=== PATIENT | male | born 1945 | race Caucasian/White ===

== ENCOUNTER 2018-07-15 17:03 | Emergency (ER) | payer MEDICARE ==
[~2018-07-15] VITALS: Ht 180.3 cm; Wt 58.0 kg
[2018-07-15 17:51] LABS: CULTURE INDICATED? YES; MICROSCOPIC INDICATED
[2018-07-15] MEDS ORDERED: FOSFOMYCIN 3 GM PACKET PO ONE (18:30)
[2018-07-15 19:31] VITALS: BP 129/70
== END 2018-07-15 19:41 | disposition home or self-care (01) ==
LOC: ED 19:30
DX: T83.038A Leakage of other urinary catheter, initial encounter (principal); T83.511A Infection and inflammatory reaction due to indwelling urethral catheter, initial encounter; Z87.891 Personal history of nicotine dependence
CPT/HCPCS: 51702; 81001; 87077; 87086; 87186; 99284

== ENCOUNTER 2018-07-17 06:46 | Inpatient (IN) | payer MEDICARE ==
[~2018-07-17] VITALS: Ht 180.3 cm; Wt 60.8 kg
[2018-07-17 07:36] LABS: CULTURE INDICATED? YES; MICROSCOPIC INDICATED
[2018-07-17] MEDS ORDERED: SODIUM CHLORIDE FLUSH 10ML SYR IVF ONE (08:00)
[2018-07-17] MEDS ORDERED: CEFTRIAXONE PMX 1GM/50ML 50 ML IV ONE (08:00)
[2018-07-17] MEDS ORDERED: CEFTRIAXONE PMX 1GM/50ML 50 ML ONE (08:23)
[2018-07-17 08:35] LABS: BASOPHILS # (AUTO) 0.18 x10^3/uL (0-0.1); BASOPHILS % (AUTO) 1 % (0-1); EOSINOPHILS # (AUTO) 0.05 x10^3/uL (0-0.4); EOSINOPHILS % (AUTO) 0 % (1-7); LYMPHOCYTES % (AUTO) 8 % (22-44); MD NO; MEAN CORPUSCULAR HEMOGLOBIN 28.1 pg (27.5-34.5); MEAN CORPUSCULAR HGB CONC 32.7 g/dL (33.2-36.2); MEAN CORPUSCULAR VOLUME 85.7 fL (81-97); MEAN PLATELET VOLUME 10.5 fL (7.4-10.4); MONOCYTES # (AUTO) 0.67 x10^3/uL (0.2-0.8); MONOCYTES % (AUTO) 5 % (2-9); NEUTROPHILS # (AUTO) 12.44 x10^3/uL (1.8-6.8); NEUTROPHILS % (AUTO) 86 % (42-75); PLATELET COUNT 370 x10^3/uL (130-400); RED BLOOD COUNT 4.28 x10^6/uL (4.38-5.82); RED CELL DISTRIBUTION WIDTH 16.3 % (9.4-14.8)
[2018-07-17 08:45] LABS: ANION GAP 8 mmol/L (5-15); CHLORIDE 108 mmol/L (98-107); CREATININE 1.93 mg/dL (0.7-1.3)
[2018-07-17] MEDS ORDERED: SODIUM CHLORIDE 0.9% 1,000ML IVBOLUS ONE (09:00)
[2018-07-17] MEDS ORDERED: ACETAMINOPHEN 325 MG TABLET PO PRN (10:00)
[2018-07-17] MEDS ORDERED: ONDANSETRON ODT 4 MG PO PRN (10:00)
[2018-07-17 11:01] VITALS: BP 150/84
[2018-07-17] MEDS: DOXYCYCLINE 100MG CAP PO SCH ×2 (12:00→20:27)
[2018-07-17] MEDS: SODIUM CHLORIDE 0.9% 1,000 ML IV SCH ×2 (12:00→21:40)
[2018-07-17] MEDS: HEPARIN 5,000 UNITS/ML, 1ML SQ SCH ×2 (12:01→20:27)
[2018-07-17 12:02] VITALS: BP 127/74
[2018-07-17 13:06] VITALS: BP 153/72
[2018-07-17 19:16] VITALS: BP 115/72
[2018-07-18 03:09] VITALS: BP 132/71
[2018-07-18] MEDS: HEPARIN 5,000 UNITS/ML, 1ML SQ SCH ×3 (04:00→20:45)
[2018-07-18 05:54] LABS: BASOPHILS # (AUTO) 0.09 x10^3/uL (0-0.1); BASOPHILS % (AUTO) 1 % (0-1); EOSINOPHILS # (AUTO) 0.14 x10^3/uL (0-0.4); EOSINOPHILS % (AUTO) 2 % (1-7); LYMPHOCYTES # (AUTO) 1.95 x10^3/uL (1-3.4); LYMPHOCYTES % (AUTO) 21 % (22-44); MD NO; MEAN CORPUSCULAR HEMOGLOBIN 28.2 pg (27.5-34.5); MEAN CORPUSCULAR HGB CONC 32.9 g/dL (33.2-36.2); MEAN CORPUSCULAR VOLUME 85.8 fL (81-97); MONOCYTES # (AUTO) 0.75 x10^3/uL (0.2-0.8); MONOCYTES % (AUTO) 8 % (2-9); NEUTROPHILS # (AUTO) 6.17 x10^3/uL (1.8-6.8); NEUTROPHILS % (AUTO) 68 % (42-75); PLATELET COUNT 284 x10^3/uL (130-400); RED BLOOD COUNT 3.37 x10^6/uL (4.38-5.82); RED CELL DISTRIBUTION WIDTH 16.3 % (9.4-14.8)
[2018-07-18 05:57] LABS: ANION GAP 8 mmol/L (5-15); CALCIUM 7.8 mg/dL (8.5-10.1); CHLORIDE 115 mmol/L (98-107)
[2018-07-18 05:58] LABS: CREATININE 2.09 mg/dL (0.7-1.3)
[2018-07-18 07:34] VITALS: BP 133/69
[2018-07-18] MEDS: DOXYCYCLINE 100MG CAP PO SCH (08:50)
[2018-07-18] MEDS: CEFTRIAXONE PMX 1GM/50ML 50 ML IV SCH (08:51)
[2018-07-18 14:30] VITALS: BP 137/75
[2018-07-18] MEDS ORDERED: SODIUM CHLORIDE 0.9%, 500ML IVBOLUS ONE (18:00)
[2018-07-18 19:20] VITALS: BP 143/77
[2018-07-19 00:36] VITALS: BP 132/72
[2018-07-19] MEDS: HEPARIN 5,000 UNITS/ML, 1ML SQ SCH ×3 (04:00→20:20)
[2018-07-19 07:38] VITALS: BP 146/78
[2018-07-19] MEDS: CEFTRIAXONE PMX 1GM/50ML 50 ML IV SCH (07:58)
[2018-07-19] MEDS ORDERED: CEPH500T PO (10:44)
[2018-07-19 16:27] VITALS: BP 155/79
[2018-07-19 19:26] VITALS: BP 130/79
[2018-07-20 00:59] VITALS: BP 140/77
[2018-07-20] MEDS: HEPARIN 5,000 UNITS/ML, 1ML SQ SCH (04:29)
[2018-07-20 05:59] LABS: ANION GAP 8 mmol/L (5-15); CALCIUM 8.2 mg/dL (8.5-10.1); CHLORIDE 113 mmol/L (98-107)
[2018-07-20 06:03] LABS: CREATININE 1.64 mg/dL (0.7-1.3)
[2018-07-20 06:54] VITALS: BP 191/93
[2018-07-20 08:17] VITALS: BP 170/96
[2018-07-20] MEDS: CEFTRIAXONE PMX 1GM/50ML 50 ML IV SCH (08:58)
== END 2018-07-20 10:44 | disposition home or self-care (01) | DRG 698 ==
LOC: ED 08:45 → EDIP 09:22 → 3NE 10:42
PROVIDERS: ADMIT Hospitalist; ATTEND Hospitalist
PROC: 0T9B70Z Drainage of Bladder with Drainage Device, Via Natural or Artificial Opening (ICD-10-PCS; principal; 2018-07-17)
DX: T83.511A Infection and inflammatory reaction due to indwelling urethral catheter, initial encounter (principal); A41.9 Sepsis, unspecified organism; R65.20 Severe sepsis without septic shock; N17.9 Acute kidney failure, unspecified; N30.91 Cystitis, unspecified with hematuria; I10 Essential (primary) hypertension; B96.1 Klebsiella pneumoniae [K. pneumoniae] as the cause of diseases classified elsewhere; Y84.6 Urinary catheterization as the cause of abnormal reaction of the patient, or of later complication, without mention of misadventure at the time of the procedure; D64.9 Anemia, unspecified; I12.9 Hypertensive chronic kidney disease with stage 1 through stage 4 chronic kidney disease, or unspecified chronic kidney disease; N18.3 Chronic kidney disease, stage 3 (moderate); Y92.89 Other specified places as the place of occurrence of the external cause; Z59.0 Homelessness
CPT/HCPCS: 36415; 71045; 80048; 81001; 82040; 83605; 83735; 84100; 84145; 85025; 87040; 87077; 87086; 87186; 96361; 96365; G0378; J0696; J1644; J7030; J7040

== ENCOUNTER 2018-07-30 14:00 | Inpatient (IN) | payer MEDICARE, OTHER ==
[~2018-07-30] VITALS: Ht 180.3 cm; Wt 57.4 kg
[~2018-07-30 14:00] MED LIST: CEPH500T PO
--- NOTE | 2018-07-30 14:05 | NUR ---
CAT RN: PATIENT BIB EMS FOR CONFUSING AND SLIGHTLY ALTERED REPORTED BY SHOWROOM CONSULTANT AT [facility]. 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 PATIENT ARRIVES WITH MALAGON CATH IN PLACE. URINE IS DARK YELLOW AND CLOUDY. PATIETN AOX3,SLOW TO RESPOND WITH ANSWERS AND UNAWARE OF YEAR. POOR HISTORIAN BUT PATIENT STATES COMPLAINT FREE AT THIS TIME. EKG COMPLETE. PATIENT ON CONTINUOUS MONITORING AT THIS TIME. REPORT GIVEN TO PRIMARY RNRONAK.
--- NOTE | 2018-07-30 14:17 | NUR ---
report received from desiree Morrell.
[2018-07-30] MEDS ORDERED: SODIUM CHLORIDE FLUSH 10ML SYR IVF ONE (14:30)
--- NOTE | 2018-07-30 14:40 | NUR ---
pt to CT
[2018-07-30 15:11] LABS: MEAN CORPUSCULAR HEMOGLOBIN 27.9 pg (27.5-34.5); MEAN CORPUSCULAR HGB CONC 32.7 g/dL (33.2-36.2); MEAN CORPUSCULAR VOLUME 85.5 fL (81-97); MEAN PLATELET VOLUME 10.2 fL (7.4-10.4); PLATELET COUNT 436 x10^3/uL (130-400); RED CELL DISTRIBUTION WIDTH 16.1 % (9.4-14.8)
[2018-07-30 15:25] LABS: ALBUMIN 3.3 g/dL (3.4-5.0); ANION GAP 9 mmol/L (5-15); CALCIUM 8.6 mg/dL (8.5-10.1); CHLORIDE 111 mmol/L (98-107)
[2018-07-30] MEDS ORDERED: SODIUM CHLORIDE 0.9% 1,000 ML IV ONE (15:28)
[2018-07-30 15:29] LABS: ALANINE AMINOTRANSFERASE 32 U/L (12-78); ALKALINE PHOSPHATASE 72 U/L (45-117); BILIRUBIN,TOTAL 0.3 mg/dL (0.2-1.0); CREATININE 1.84 mg/dL (0.7-1.3); TOTAL PROTEIN 8.2 g/dL (6.4-8.2)
[2018-07-30 15:30] LABS: PROTHROMBIN TIME 10.4 Seconds (9.6-11.5)
[2018-07-30] MEDS ORDERED: SODIUM CHLORIDE 0.9% 1,000ML IVBOLUS ONE (15:30)
[2018-07-30] MEDS ORDERED: CEFTRIAXONE 1,000 MG in SODIUM CHLORIDE 0.9% 50 ML IVPB ONE (15:30)
--- NOTE | 2018-07-30 15:30 | NUR ---
LABS AND IMAGING REVIEWED BY SOCORRO SPICER. PT A&O X 2, RESPS EVEN AND UNLABORED. NEURO INTACT. PT DENIES PAIN.
[2018-07-30 15:33] LABS: MICROSCOPIC INDICATED
[2018-07-30 15:45] LABS: CULTURE INDICATED? NO
[2018-07-30] MEDS ORDERED: CEFTRIAXONE PMX 1GM/50ML 50 ML ONE (15:49)
[2018-07-30 15:53] LABS: MD YES
[2018-07-30 15:55] LABS: BAND#(MANUAL) 1.52 x10^3/uL; BANDS%(MANUAL) 6 % (0-7); BASOS#(MANUAL) 0.25 x10^3/uL (0-0.1); BASOS% (MANUAL) 1 % (0-1); LYMPH#(MANUAL) 1.27 x10^3/uL (1-3.4); LYMPHS% (MANUAL) 5 % (22-44); MONOS#(MANUAL) 0.51 x10^3/uL (0.3-2.7); MONOS% (MANUAL) 2 % (2-9); SEG#(MANUAL) 21.76 x10^3/uL (1.8-6.8); SEGS% (MANUAL) 86 % (42-75)
[2018-07-30 15:56] LABS: <PLATELET ESTIMATE> INCREASED; <PLT MORPHOLOGY> NORMAL PLT MORPH; ANISOCYTOSIS 1+
[2018-07-30] MEDS ORDERED: SODIUM CHLORIDE 0.9% 1,000 ML IV SCH (16:25)
[2018-07-30] MEDS ORDERED: ENALAPRILAT 1.25 MG/ML, 2ML IV PRN (16:30)
[2018-07-30] MEDS ORDERED: morphine SULFATE 10 MG/ML, 1ML IVPush PRN (16:30)
[2018-07-30] MEDS ORDERED: LABETALOL 5MG/ML, 20ML IV PRN (16:30)
[2018-07-30] MEDS ORDERED: SODIUM CHLORIDE FLUSH 10ML SYR IVF PRN (16:30)
[2018-07-30] MEDS ORDERED: POLYETHYLENE GLYCOL 17 GM PACKET PO PRN (16:30)
--- NOTE | 2018-07-30 16:30 | NUR ---
PT MEDICATED PER EMAR, ABX STARTED AFTER BLOOD CX DONE X 2.
[2018-07-30] MEDS: CEFTRIAXONE PMX 1GM/50ML 50 ML IV SCH (17:00)
--- NOTE | 2018-07-30 17:36 | NUR ---
REPORT CALLED TO RECEIVING RN GUILLE. PT WAS INCONTINENT OF STOOL, STOOL LOOSE AND BROWN. STOOL SENT TO LAB FOR CDIFF RULE OUT, RECEIVING RN AWARE. NO PRIVATE ROOMS AVAILABLE ON [employer] AT THIS TIME. PT AWAITING RESULTS PRIOR TO TRANSPORT. PT'S SPO2 88% AFTER COMPLETE LINEN CHANGE AND SHANIQUE CARE WITH THERWORX. OXYGEN APPLIED AT 2L/MIN VIA NC, PT'S SPO2 IS 98% AT THIS TIME. MALAGON SECUREMENT DEVICE APPLIED.
--- NOTE | 2018-07-30 17:40 | NUR ---
special contact precautions in place
--- NOTE | 2018-07-30 17:45 | NUR ---
Mae thomas in [facility] - 07/30/18 at 1757 by ARIELLA pt to MRI
[2018-07-30 18:11] LABS: CLOSTRIDIUM DIFFICILE ANTIGEN POSITIVE; CLOSTRIDIUM DIFFICILE TOXIN POSITIVE (Negative)
--- NOTE | 2018-07-30 18:27 | NUR ---
night hospitalist Brown RENEE called to notify pt has positive cdiff antigen and toxin with WBC count 25 and only rocephin ordered for antibiotics. no orders received at this time. pt awake, alert and oriented to person place and situation. vss. awaiting private med-tele room assignment and transport, throughput RN aware positive cdiff results.
--- NOTE | 2018-07-30 18:40 | NUR ---
Night hospitalist LORETTA Hercules notified that pt has positive cdiff antigen/toxin with wbc 25 and only rocephin ordered for abx. LORETTA states she has already spoken to DO Badery regarding this information. LORETTA to enter orders for appropriate abx.
[2018-07-30] MEDS ORDERED: METRONIDAZOLE PMX 500MG/100ML 100 ML ONE (19:02)
[2018-07-30] MEDS: METRONIDAZOLE PMX 500MG/100ML 100 ML IV SCH (19:07)
--- NOTE | 2018-07-30 19:20 | NUR ---
PT INCONTINENT OF STOOL, CLEANED WITH THERAWORX. LINEN CHANGED. PT A&O, RESPS EVEN AND UNLABORED. VSS. RERORT TO YAMILE FERNÁNDEZ AT BEDSIDE.
--- NOTE | 2018-07-30 19:22 | NUR ---
PT BEDSIDE REPORT FROM RONAK RN. THIS RN TO ASSUME CARE OF PT. PT SOILED BED AND EVERYTHING CHANGED W/ RONAK RN. ABX FLOWING APPROPRIATELY. VSS. NADN. COMFORT MEASURES APPLIED.
[2018-07-30] MEDS ORDERED: NICOTINE 7 MG/24 HR PATCH.TD24 ONE (20:24)
[2018-07-30] MEDS ORDERED: ATORVASTATIN 40 MG TABLET ONE (20:24)
[2018-07-30 20:49] VITALS: BP 130/71
[2018-07-30] MEDS: ATORVASTATIN 40 MG TABLET PO SCH (21:00)
[2018-07-30] MEDS: NICOTINE 7 MG/24 HR PATCH.TD24 TD SCH (21:07)
[2018-07-30 22:00] VITALS: BP 137/76
[2018-07-31] VITALS (8 sets, daily range): BP systolic 92–156; BP diastolic 52–82
[2018-07-31] MEDS: METRONIDAZOLE PMX 500MG/100ML 100 ML IV SCH ×4 (00:48→19:39)
[2018-07-31 05:34] LABS: LDL/HDL RATIO 1.7 (0.5-3.0)
[2018-07-31 06:49] LABS: MEAN CORPUSCULAR HEMOGLOBIN 27.3 pg (27.5-34.5); MEAN CORPUSCULAR HGB CONC 32.1 g/dL (33.2-36.2); MEAN CORPUSCULAR VOLUME 85.1 fL (81-97); MEAN PLATELET VOLUME 11.1 fL (7.4-10.4); PLATELET COUNT 360 x10^3/uL (130-400); RED BLOOD COUNT 4.09 x10^6/uL (4.38-5.82); RED CELL DISTRIBUTION WIDTH 16.7 % (9.4-14.8)
[2018-07-31 06:55] LABS: ALBUMIN 2.6 g/dL (3.4-5.0); ANION GAP 12 mmol/L (5-15); CALCIUM 8.4 mg/dL (8.5-10.1); CHLORIDE 116 mmol/L (98-107); CREATININE 1.65 mg/dL (0.7-1.3)
[2018-07-31 07:38] LABS: BAND#(MANUAL) 3.07 x10^3/uL; BANDS%(MANUAL) 16 % (0-7); LYMPH#(MANUAL) 1.54 x10^3/uL (1-3.4); LYMPHS% (MANUAL) 8 % (22-44); MD YES; SEG#(MANUAL) 14.59 x10^3/uL (1.8-6.8); SEGS% (MANUAL) 76 % (42-75)
[2018-07-31 07:39] LABS: <PLATELET ESTIMATE> ADEQUATE; <RBC MORPHOLOGY> NORMAL; LARGE PLATELETS 1+
[2018-07-31] MEDS ORDERED: ASPIRIN 81 MG TABLET CHEW PO/NG SCH (09:00)
[2018-07-31 09:17] LABS: AMPHETAMINE SCREEN, URINE Negative (Negative); BARBITURATE SCREEN, URINE Negative (Negative); BENZODIAZEPINE SCREEN, URINE Negative (Negative); CANNABINOID SCREEN, URINE Negative (Negative); COCAINE SCREEN, URINE Negative (Negative); METHADONE SCREEN, URINE Negative (Negative); OPIATE SCREEN, URINE Negative (Negative)
[2018-07-31] MEDS: CEFTRIAXONE PMX 1GM/50ML 50 ML IV SCH (16:44)
[2018-07-31] MEDS: NICOTINE 7 MG/24 HR PATCH.TD24 TD SCH (16:44)
[2018-07-31] MEDS: ATORVASTATIN 40 MG TABLET PO SCH (19:39)
[2018-08-01 00:30] VITALS: BP 142/79
[2018-08-01] MEDS: VANCOMYCIN 50 MG/ML ORAL SUSP PO SCH ×4 (01:53→19:33)
[2018-08-01 04:00] VITALS: BP 130/75
[2018-08-01 06:46] VITALS: BP 132/78
[2018-08-01 12:10] VITALS: BP 134/76
[2018-08-01] MEDS: NICOTINE 7 MG/24 HR PATCH.TD24 TD SCH (15:07)
[2018-08-01 16:23] VITALS: BP 130/79
[2018-08-01 18:30] VITALS: BP 137/74
[2018-08-01] MEDS: ATORVASTATIN 40 MG TABLET PO SCH (19:33)
[2018-08-02] VITALS: BP 139/74
[2018-08-02] MEDS: VANCOMYCIN 50 MG/ML ORAL SUSP PO SCH ×4 (01:05→20:40)
[2018-08-02 04:00] VITALS: BP 148/88
[2018-08-02 08:19] VITALS: BP 157/84
[2018-08-02 10:12] LABS: ALANINE AMINOTRANSFERASE 21 U/L (12-78); ALBUMIN 2.5 g/dL (3.4-5.0); ANION GAP 6 mmol/L (5-15); CALCIUM 8.2 mg/dL (8.5-10.1); CHLORIDE 116 mmol/L (98-107); CREATININE 1.51 mg/dL (0.7-1.3)
[2018-08-02 10:14] LABS: ALKALINE PHOSPHATASE 54 U/L (45-117); BILIRUBIN,TOTAL 0.2 mg/dL (0.2-1.0); TOTAL PROTEIN 6.5 g/dL (6.4-8.2)
[2018-08-02] MEDS ORDERED: POTASSIUM PHOSPHATE 44 MEQ in SODIUM CHLORIDE 0.9% 500 ML IV ONE (11:30)
[2018-08-02] MEDS ORDERED: MAGNESIUM SULFATE 3 GM in SODIUM CHLORIDE 0.9% 100 ML IV ONE (11:30)
[2018-08-02] MEDS ORDERED: POTASSIUM CHLORIDE 40 MEQ in SODIUM CHLORIDE 0.9% 500 ML IV ONE ×2 (11:30→20:00)
[2018-08-02 13:42] VITALS: BP 155/92
[2018-08-02] MEDS: NICOTINE 7 MG/24 HR PATCH.TD24 TD SCH (17:13)
[2018-08-02] MEDS: ATORVASTATIN 40 MG TABLET PO SCH (20:39)
[2018-08-02 21:10] VITALS: BP 132/79
[2018-08-03 01:44] VITALS: BP 153/82
[2018-08-03] MEDS: VANCOMYCIN 50 MG/ML ORAL SUSP PO SCH ×4 (01:52→22:15)
[2018-08-03 06:00] LABS: BASOPHILS # (AUTO) 0.03 x10^3/uL (0-0.1); BASOPHILS % (AUTO) 0 % (0-1); EOSINOPHILS % (AUTO) 2 % (1-7); LYMPHOCYTES # (AUTO) 1.92 x10^3/uL (1-3.4); LYMPHOCYTES % (AUTO) 24 % (22-44); MD NO; MEAN CORPUSCULAR HEMOGLOBIN 27.8 pg (27.5-34.5); MEAN CORPUSCULAR HGB CONC 32.8 g/dL (33.2-36.2); MEAN CORPUSCULAR VOLUME 84.8 fL (81-97); MEAN PLATELET VOLUME 10.5 fL (7.4-10.4); MONOCYTES # (AUTO) 0.57 x10^3/uL (0.2-0.8); MONOCYTES % (AUTO) 7 % (2-9); NEUTROPHILS # (AUTO) 5.48 x10^3/uL (1.8-6.8); NEUTROPHILS % (AUTO) 67 % (42-75); PLATELET COUNT 344 x10^3/uL (130-400); RED BLOOD COUNT 4.68 x10^6/uL (4.38-5.82); RED CELL DISTRIBUTION WIDTH 16.3 % (9.4-14.8)
[2018-08-03 06:12] LABS: ALANINE AMINOTRANSFERASE 21 U/L (12-78); ALKALINE PHOSPHATASE 57 U/L (45-117); BILIRUBIN,TOTAL 0.3 mg/dL (0.2-1.0); CREATININE 1.41 mg/dL (0.7-1.3); TOTAL PROTEIN 6.4 g/dL (6.4-8.2)
[2018-08-03 06:26] LABS: ALBUMIN 2.5 g/dL (3.4-5.0); ANION GAP 4 mmol/L (5-15); CALCIUM 7.6 mg/dL (8.5-10.1); CHLORIDE 119 mmol/L (98-107)
[2018-08-03 06:59] VITALS: BP 144/77
[2018-08-03 14:00] VITALS: BP 148/87
[2018-08-03] MEDS: NICOTINE 7 MG/24 HR PATCH.TD24 TD SCH (16:52)
[2018-08-03 18:51] VITALS: BP 123/70
[2018-08-03] MEDS: ATORVASTATIN 40 MG TABLET PO SCH (22:15)
[2018-08-04 00:19] VITALS: BP 126/80
[2018-08-04] MEDS: VANCOMYCIN 50 MG/ML ORAL SUSP PO SCH ×4 (05:24→22:06)
[2018-08-04 05:29] LABS: ANION GAP 9 mmol/L (5-15); CALCIUM 7.9 mg/dL (8.5-10.1); CHLORIDE 115 mmol/L (98-107); CREATININE 1.25 mg/dL (0.7-1.3)
[2018-08-04 07:56] VITALS: BP 121/86
[2018-08-04 12:38] VITALS: BP 134/75
[2018-08-04] MEDS: NICOTINE 7 MG/24 HR PATCH.TD24 TD SCH (17:09)
[2018-08-04 19:26] VITALS: BP 121/67
[2018-08-04] MEDS: ATORVASTATIN 40 MG TABLET PO SCH (22:07)
[2018-08-05] VITALS (11 sets, daily range): BP systolic 101–174; BP diastolic 60–99
[2018-08-05] MEDS: VANCOMYCIN 50 MG/ML ORAL SUSP PO SCH ×4 (04:53→22:49)
[2018-08-05] MEDS ORDERED: ONDANSETRON ODT 4 MG ONE (11:34)
[2018-08-05] MEDS: NICOTINE 7 MG/24 HR PATCH.TD24 TD SCH (16:30)
[2018-08-05] MEDS: HYDROcodone/APAP 5/325 TABLET PO PRN (17:24)
--- NOTE | 2018-08-05 21:39 | NUR ---
SHAWANDA WHELAN - Fall Risk Medication(s) present and receiving anticoagulants.
[2018-08-05] MEDS: ATORVASTATIN 40 MG TABLET PO SCH (22:49)
[2018-08-05] MEDS: ACETAMINOPHEN 325 MG TABLET PO PRN (23:02)
[2018-08-05] MEDS: ONDANSETRON 2MG/ML, 2ML IVPush PRN (23:05)
[2018-08-06 01:00] VITALS: BP 137/82
[2018-08-06 02:12] VITALS: BP 118/76
[2018-08-06] MEDS: VANCOMYCIN 50 MG/ML ORAL SUSP PO SCH ×3 (04:21→17:26)
[2018-08-06 08:17] VITALS: BP 150/82
[2018-08-06] MEDS: ACETAMINOPHEN 325 MG TABLET PO PRN (10:59)
[2018-08-06 14:27] VITALS: BP 117/69
[2018-08-06] MEDS: HYDROcodone/APAP 5/325 TABLET PO PRN (15:25)
[2018-08-06] MEDS: ONDANSETRON 2MG/ML, 2ML IVPush PRN (15:26)
[2018-08-06] MEDS: NICOTINE 7 MG/24 HR PATCH.TD24 TD SCH (17:27)
[2018-08-06 20:24] VITALS: BP 137/71
[2018-08-06] MEDS: ATORVASTATIN 40 MG TABLET PO SCH (22:34)
[2018-08-07] MEDS: VANCOMYCIN 50 MG/ML ORAL SUSP PO SCH ×4 (00:49→21:27)
[2018-08-07 01:28] VITALS: BP 137/81
[2018-08-07 05:47] LABS: BASOPHILS # (AUTO) 0.14 x10^3/uL (0-0.1); BASOPHILS % (AUTO) 1 % (0-1); EOSINOPHILS % (AUTO) 1 % (1-7); LYMPHOCYTES # (AUTO) 1.56 x10^3/uL (1-3.4); LYMPHOCYTES % (AUTO) 12 % (22-44); MD NO; MEAN CORPUSCULAR HEMOGLOBIN 27.6 pg (27.5-34.5); MEAN CORPUSCULAR HGB CONC 32.9 g/dL (33.2-36.2); MEAN CORPUSCULAR VOLUME 83.7 fL (81-97); MEAN PLATELET VOLUME 11.1 fL (7.4-10.4); MONOCYTES # (AUTO) 0.94 x10^3/uL (0.2-0.8); MONOCYTES % (AUTO) 7 % (2-9); NEUTROPHILS # (AUTO) 10.61 x10^3/uL (1.8-6.8); NEUTROPHILS % (AUTO) 80 % (42-75); PLATELET COUNT 433 x10^3/uL (130-400); RED BLOOD COUNT 4.88 x10^6/uL (4.38-5.82); RED CELL DISTRIBUTION WIDTH 16.1 % (9.4-14.8)
[2018-08-07 06:03] LABS: ANION GAP 9 mmol/L (5-15); CALCIUM 8.7 mg/dL (8.5-10.1); CHLORIDE 104 mmol/L (98-107)
[2018-08-07 06:06] LABS: ALANINE AMINOTRANSFERASE 18 U/L (12-78); ALKALINE PHOSPHATASE 64 U/L (45-117); BILIRUBIN,TOTAL 0.3 mg/dL (0.2-1.0); CREATININE 1.43 mg/dL (0.7-1.3); TOTAL PROTEIN 7.4 g/dL (6.4-8.2)
[2018-08-07 07:48] VITALS: BP 141/80
[2018-08-07] MEDS ORDERED: LACTULOSE 3.3 GM/5 ML ORAL.SOL RC ONE ×2 (10:00→21:00)
[2018-08-07] MEDS: ONDANSETRON 2MG/ML, 2ML IVPush PRN (10:40)
[2018-08-07] MEDS: SODIUM CHLORIDE 0.9% 1,000 ML IV SCH ×2 (10:40→21:27)
[2018-08-07 13:49] VITALS: BP 133/80
--- NOTE | 2018-08-07 16:22 | NUR ---
Green activity sheet posted and RN informed. Recommended up for all meals and ambulation with FWW and min assist in room. (Discussed second person assisting to manage IV pole) Addendum: 08/07/18 at 1624 by Alfredo Strong PT Amended: Links added.
[2018-08-07 16:27] VITALS: BP_SYST 129; BP_SYST 152; BP_DIAS 86
[2018-08-07 16:28] VITALS: BP 146/107
[2018-08-07] MEDS: NICOTINE 7 MG/24 HR PATCH.TD24 TD SCH (16:30)
[2018-08-07 20:00] VITALS: BP 128/73
[2018-08-07] MEDS: ATORVASTATIN 40 MG TABLET PO SCH (21:27)
[2018-08-08 02:00] VITALS: BP 139/77
[2018-08-08] MEDS: VANCOMYCIN 50 MG/ML ORAL SUSP PO SCH ×4 (02:48→21:02)
[2018-08-08] MEDS: SODIUM CHLORIDE 0.9% 1,000 ML IV SCH ×2 (05:44→18:20)
[2018-08-08 07:13] VITALS: BP 126/77
[2018-08-08] MEDS: POLYETHYLENE GLYCOL 17 GM PACKET PO SCH (08:41)
[2018-08-08 12:58] VITALS: BP 139/79
[2018-08-08] MEDS: NICOTINE 7 MG/24 HR PATCH.TD24 TD SCH (16:30)
[2018-08-08 20:00] VITALS: BP 143/66
[2018-08-08] MEDS: ATORVASTATIN 40 MG TABLET PO SCH (21:02)
[2018-08-09 01:01] VITALS: BP 154/77
[2018-08-09] MEDS: VANCOMYCIN 50 MG/ML ORAL SUSP PO SCH ×4 (03:22→21:23)
[2018-08-09 07:19] VITALS: BP 144/70
[2018-08-09] MEDS: POLYETHYLENE GLYCOL 17 GM PACKET PO SCH (08:51)
[2018-08-09 13:14] VITALS: BP 163/84
[2018-08-09] MEDS: SODIUM CHLORIDE 0.9% 1,000 ML IV SCH (13:51)
[2018-08-09] MEDS: NICOTINE 7 MG/24 HR PATCH.TD24 TD SCH (15:44)
[2018-08-09 20:00] VITALS: BP 146/79
[2018-08-09] MEDS: ATORVASTATIN 40 MG TABLET PO SCH (21:23)
[2018-08-10 02:00] VITALS: BP 154/74
[2018-08-10] MEDS: VANCOMYCIN 50 MG/ML ORAL SUSP PO SCH ×4 (03:42→21:11)
[2018-08-10] MEDS: SODIUM CHLORIDE 0.9% 1,000 ML IV SCH (03:42)
[2018-08-10 06:42] VITALS: BP 164/85
[2018-08-10] MEDS: POLYETHYLENE GLYCOL 17 GM PACKET PO SCH (10:26)
[2018-08-10] MEDS: AMLODIPINE 5 MG TABLET PO SCH (10:27)
[2018-08-10 14:41] VITALS: BP 166/85
[2018-08-10] MEDS: NICOTINE 7 MG/24 HR PATCH.TD24 TD SCH (15:38)
[2018-08-10] MEDS ORDERED: LABETALOL 5MG/ML, 20ML IV PRN (16:00)
[2018-08-10] MEDS ORDERED: ENALAPRILAT 1.25 MG/ML, 2ML IV PRN (16:30)
[2018-08-10 20:18] VITALS: BP 147/74
[2018-08-10] MEDS: ATORVASTATIN 40 MG TABLET PO SCH (21:11)
[2018-08-11 01:31] VITALS: BP 143/80
[2018-08-11] MEDS: VANCOMYCIN 50 MG/ML ORAL SUSP PO SCH ×2 (02:27→09:21)
[2018-08-11 05:56] LABS: BASOPHILS % (AUTO) 2 % (0-1); EOSINOPHILS # (AUTO) 0.22 x10^3/uL (0-0.4); EOSINOPHILS % (AUTO) 2 % (1-7); LYMPHOCYTES # (AUTO) 2.38 x10^3/uL (1-3.4); LYMPHOCYTES % (AUTO) 21 % (22-44); MD NO; MEAN CORPUSCULAR HEMOGLOBIN 27.8 pg (27.5-34.5); MEAN CORPUSCULAR HGB CONC 33.2 g/dL (33.2-36.2); MEAN CORPUSCULAR VOLUME 83.9 fL (81-97); MEAN PLATELET VOLUME 11.3 fL (7.4-10.4); MONOCYTES # (AUTO) 0.78 x10^3/uL (0.2-0.8); MONOCYTES % (AUTO) 7 % (2-9); NEUTROPHILS # (AUTO) 8.01 x10^3/uL (1.8-6.8); NEUTROPHILS % (AUTO) 69 % (42-75); PLATELET COUNT 367 x10^3/uL (130-400); RED CELL DISTRIBUTION WIDTH 15.4 % (9.4-14.8)
[2018-08-11 06:08] LABS: ANION GAP 6 mmol/L (5-15); CALCIUM 8.3 mg/dL (8.5-10.1); CHLORIDE 107 mmol/L (98-107); CREATININE 1.32 mg/dL (0.7-1.3)
[2018-08-11 07:45] VITALS: BP_SYST 169; BP_SYST 187; BP_DIAS 89; BP_DIAS 90
[2018-08-11] MEDS: POLYETHYLENE GLYCOL 17 GM PACKET PO SCH (09:21)
[2018-08-11] MEDS: AMLODIPINE 5 MG TABLET PO SCH (09:21)
[2018-08-11 12:27] VITALS: BP 170/86
[2018-08-11] MEDS: NICOTINE 7 MG/24 HR PATCH.TD24 TD SCH (13:13)
[2018-08-11 20:00] VITALS: BP 150/79
[2018-08-11] MEDS: ATORVASTATIN 40 MG TABLET PO SCH (21:31)
[2018-08-12 02:00] VITALS: BP 134/80
[2018-08-12 07:26] VITALS: BP 156/80
[2018-08-12] MEDS: AMLODIPINE 5 MG TABLET PO SCH (07:48)
[2018-08-12] MEDS: POLYETHYLENE GLYCOL 17 GM PACKET PO SCH (07:48)
[2018-08-12] MEDS ORDERED: AMLODIPINE 5 MG TABLET ONE (08:24)
[2018-08-12] MEDS: AMLODIPINE 10 MG TAB PO SCH (08:26)
[2018-08-12 12:29] VITALS: BP 149/89
[2018-08-12] MEDS: NICOTINE 7 MG/24 HR PATCH.TD24 TD SCH (16:12)
[2018-08-12 19:52] VITALS: BP 127/73
[2018-08-12] MEDS: ATORVASTATIN 40 MG TABLET PO SCH (21:39)
[2018-08-13 02:00] VITALS: BP 122/77
[2018-08-13] MEDS: POLYETHYLENE GLYCOL 17 GM PACKET PO SCH (07:10)
[2018-08-13 08:07] VITALS: BP 123/79
[2018-08-13] MEDS: AMLODIPINE 10 MG TAB PO SCH (09:00)
[2018-08-13 12:28] VITALS: BP 121/67
[2018-08-13] MEDS: NICOTINE 7 MG/24 HR PATCH.TD24 TD SCH (16:24)
[2018-08-13 20:17] VITALS: BP 117/72
[2018-08-13] MEDS: ATORVASTATIN 40 MG TABLET PO SCH (21:33)
[2018-08-14 00:57] VITALS: BP 127/71
[2018-08-14] MEDS: POLYETHYLENE GLYCOL 17 GM PACKET PO SCH (07:39)
[2018-08-14] MEDS: AMLODIPINE 10 MG TAB PO SCH (07:39)
[2018-08-14 09:21] VITALS: BP 122/83
[2018-08-14] MEDS: NICOTINE 7 MG/24 HR PATCH.TD24 TD SCH (14:20)
[2018-08-14 14:22] VITALS: BP 134/85
[2018-08-14 20:15] VITALS: BP 147/84
[2018-08-14] MEDS: ATORVASTATIN 40 MG TABLET PO SCH (21:19)
[2018-08-15 01:13] VITALS: BP 132/78
[2018-08-15] MEDS: ONDANSETRON 2MG/ML, 2ML IVPush PRN ×2 (02:16→20:28)
[2018-08-15 08:21] VITALS: BP 136/85
[2018-08-15] MEDS: AMLODIPINE 10 MG TAB PO SCH (08:29)
[2018-08-15] MEDS: NICOTINE 7 MG/24 HR PATCH.TD24 TD SCH (08:30)
[2018-08-15] MEDS: POLYETHYLENE GLYCOL 17 GM PACKET PO SCH (08:30)
[2018-08-15 13:17] VITALS: BP 119/68
[2018-08-15 18:43] VITALS: BP 154/90
[2018-08-15] MEDS: ATORVASTATIN 40 MG TABLET PO SCH (20:28)
[2018-08-16 00:21] VITALS: BP 135/82
[2018-08-16 06:40] VITALS: BP 136/78
[2018-08-16] MEDS: AMLODIPINE 10 MG TAB PO SCH (07:47)
[2018-08-16] MEDS: POLYETHYLENE GLYCOL 17 GM PACKET PO SCH (07:47)
[2018-08-16 12:07] VITALS: BP 117/66
[2018-08-16] MEDS: ONDANSETRON 2MG/ML, 2ML IVPush PRN (14:02)
[2018-08-16] MEDS: NICOTINE 7 MG/24 HR PATCH.TD24 TD SCH (15:49)
[2018-08-16 18:33] VITALS: BP 137/80
[2018-08-16] MEDS: ATORVASTATIN 40 MG TABLET PO SCH (20:07)
[2018-08-17 00:47] VITALS: BP 133/81
[2018-08-17 05:21] LABS: MEAN CORPUSCULAR HEMOGLOBIN 27.6 pg (27.5-34.5); MEAN CORPUSCULAR HGB CONC 32.9 g/dL (33.2-36.2); RED BLOOD COUNT 5.16 x10^6/uL (4.38-5.82); RED CELL DISTRIBUTION WIDTH 15.6 % (9.4-14.8)
[2018-08-17 05:25] LABS: ANION GAP 9 mmol/L (5-15); CALCIUM 8.7 mg/dL (8.5-10.1); CHLORIDE 106 mmol/L (98-107); CREATININE 1.52 mg/dL (0.7-1.3)
[2018-08-17 05:57] LABS: BASOPHILS # (AUTO) 0.07 x10^3/uL (0-0.1); BASOPHILS % (AUTO) 1 % (0-1); EOSINOPHILS # (AUTO) 0.44 x10^3/uL (0-0.4); EOSINOPHILS % (AUTO) 3 % (1-7); LYMPHOCYTES # (AUTO) 2.39 x10^3/uL (1-3.4); LYMPHOCYTES % (AUTO) 17 % (22-44); MD SCAN; MEAN PLATELET VOLUME 11.6 fL (7.4-10.4); MONOCYTES # (AUTO) 0.46 x10^3/uL (0.2-0.8); MONOCYTES % (AUTO) 3 % (2-9); NEUTROPHILS # (AUTO) 10.79 x10^3/uL (1.8-6.8); NEUTROPHILS % (AUTO) 76 % (42-75); PLATELET COUNT 308 x10^3/uL (130-400)
[2018-08-17 06:59] VITALS: BP 141/84
[2018-08-17] MEDS: POLYETHYLENE GLYCOL 17 GM PACKET PO SCH (08:42)
[2018-08-17] MEDS: AMLODIPINE 10 MG TAB PO SCH (08:42)
[2018-08-17] MEDS: ONDANSETRON 2MG/ML, 2ML IVPush PRN ×2 (10:15→17:11)
[2018-08-17 14:13] VITALS: BP 150/89
[2018-08-17] MEDS: NICOTINE 7 MG/24 HR PATCH.TD24 TD SCH (16:30)
[2018-08-17 19:19] VITALS: BP 150/87
[2018-08-17] MEDS: ATORVASTATIN 40 MG TABLET PO SCH (20:21)
[2018-08-18 00:06] VITALS: BP 130/88
[2018-08-18] MEDS: ONDANSETRON 2MG/ML, 2ML IVPush PRN ×3 (01:54→20:01)
[2018-08-18 07:41] VITALS: BP 116/73
[2018-08-18] MEDS: POLYETHYLENE GLYCOL 17 GM PACKET PO SCH (09:00)
[2018-08-18] MEDS: AMLODIPINE 10 MG TAB PO SCH (09:31)
[2018-08-18 12:06] VITALS: BP 142/83
[2018-08-18] MEDS: NICOTINE 7 MG/24 HR PATCH.TD24 TD SCH (15:46)
[2018-08-18 20:00] VITALS: BP 115/63
[2018-08-18] MEDS: ATORVASTATIN 40 MG TABLET PO SCH (20:02)
[2018-08-19 02:00] VITALS: BP 116/73
[2018-08-19 07:07] VITALS: BP 136/82
[2018-08-19] MEDS: AMLODIPINE 10 MG TAB PO SCH (07:56)
[2018-08-19] MEDS: POLYETHYLENE GLYCOL 17 GM PACKET PO SCH (07:58)
[2018-08-19] MEDS ORDERED: SCOPOLAMINE PATCH, 1.5MG PATCH.TD72 TD ONE (10:00)
[2018-08-19] MEDS: ONDANSETRON ODT 4 MG PO SCH ×3 (11:28→20:42)
[2018-08-19 12:09] VITALS: BP 124/67
[2018-08-19] MEDS: NICOTINE 7 MG/24 HR PATCH.TD24 TD SCH (16:07)
[2018-08-19 19:20] VITALS: BP 119/73
[2018-08-19] MEDS: ATORVASTATIN 40 MG TABLET PO SCH (20:42)
[2018-08-20 00:34] VITALS: BP 119/69
[2018-08-20] MEDS: POLYETHYLENE GLYCOL 17 GM PACKET PO SCH (07:19)
[2018-08-20 08:12] VITALS: BP 138/89
[2018-08-20] MEDS: AMLODIPINE 10 MG TAB PO SCH (08:50)
[2018-08-20] MEDS: ONDANSETRON ODT 4 MG PO SCH ×2 (08:50→15:09)
[2018-08-20] MEDS: NICOTINE 7 MG/24 HR PATCH.TD24 TD SCH (15:09)
[2018-08-20 15:57] VITALS: BP 106/66
[2018-08-20 18:50] VITALS: BP 123/76
[2018-08-20] MEDS: ATORVASTATIN 40 MG TABLET PO SCH (22:35)
[2018-08-21 01:05] VITALS: BP 111/63
[2018-08-21 07:31] VITALS: BP 114/67
[2018-08-21] MEDS: POLYETHYLENE GLYCOL 17 GM PACKET PO SCH (09:00)
[2018-08-21] MEDS: AMLODIPINE 10 MG TAB PO SCH (09:42)
[2018-08-21 13:46] VITALS: BP 118/69
[2018-08-21] MEDS: NICOTINE 7 MG/24 HR PATCH.TD24 TD SCH (16:30)
[2018-08-21] MEDS: ONDANSETRON 2MG/ML, 2ML IVPush PRN (20:16)
[2018-08-21] MEDS: ATORVASTATIN 40 MG TABLET PO SCH (20:17)
[2018-08-21 21:47] VITALS: BP 134/76
[2018-08-22 01:32] VITALS: BP 127/75
[2018-08-22 07:08] VITALS: BP 113/64
[2018-08-22] MEDS: AMLODIPINE 10 MG TAB PO SCH (08:57)
[2018-08-22] MEDS: POLYETHYLENE GLYCOL 17 GM PACKET PO SCH (08:57)
[2018-08-22 13:11] VITALS: BP 130/81
[2018-08-22] MEDS: NICOTINE 7 MG/24 HR PATCH.TD24 TD SCH (15:11)
[2018-08-22 19:45] VITALS: BP 128/83
[2018-08-22] MEDS: ATORVASTATIN 40 MG TABLET PO SCH (20:06)
[2018-08-22] MEDS: ONDANSETRON 2MG/ML, 2ML IVPush PRN (20:12)
[2018-08-23 01:22] VITALS: BP 129/79
[2018-08-23 09:02] VITALS: BP 126/80
[2018-08-23] MEDS: AMLODIPINE 10 MG TAB PO SCH (09:35)
[2018-08-23] MEDS: POLYETHYLENE GLYCOL 17 GM PACKET PO SCH (09:35)
[2018-08-23] MEDS: ONDANSETRON 2MG/ML, 2ML IVPush PRN ×2 (09:35→17:11)
[2018-08-23 13:00] VITALS: BP 108/77
[2018-08-23] MEDS: NICOTINE 7 MG/24 HR PATCH.TD24 TD SCH (15:05)
[2018-08-23 20:48] VITALS: BP 138/73
[2018-08-23] MEDS: ATORVASTATIN 40 MG TABLET PO SCH (22:18)
[2018-08-24 01:17] VITALS: BP 122/79
[2018-08-24 04:59] LABS: BASOPHILS # (AUTO) 0.11 x10^3/uL (0-0.1); BASOPHILS % (AUTO) 1 % (0-1); EOSINOPHILS # (AUTO) 0.37 x10^3/uL (0-0.4); EOSINOPHILS % (AUTO) 4 % (1-7); LYMPHOCYTES # (AUTO) 2.81 x10^3/uL (1-3.4); LYMPHOCYTES % (AUTO) 28 % (22-44); MD NO; MEAN CORPUSCULAR HEMOGLOBIN 27.6 pg (27.5-34.5); MEAN CORPUSCULAR HGB CONC 32.9 g/dL (33.2-36.2); MEAN CORPUSCULAR VOLUME 83.9 fL (81-97); MONOCYTES # (AUTO) 0.63 x10^3/uL (0.2-0.8); MONOCYTES % (AUTO) 6 % (2-9); NEUTROPHILS # (AUTO) 6.08 x10^3/uL (1.8-6.8); NEUTROPHILS % (AUTO) 61 % (42-75); PLATELET COUNT 312 x10^3/uL (130-400); RED BLOOD COUNT 5.16 x10^6/uL (4.38-5.82); RED CELL DISTRIBUTION WIDTH 16.3 % (9.4-14.8)
[2018-08-24 05:04] LABS: ANION GAP 6 mmol/L (5-15); CALCIUM 8.6 mg/dL (8.5-10.1); CHLORIDE 104 mmol/L (98-107); CREATININE 1.82 mg/dL (0.7-1.3)
[2018-08-24 08:47] VITALS: BP 126/76
[2018-08-24] MEDS: AMLODIPINE 10 MG TAB PO SCH (09:03)
[2018-08-24] MEDS: POLYETHYLENE GLYCOL 17 GM PACKET PO SCH (09:03)
[2018-08-24] MEDS: SODIUM CHLORIDE 0.9% 1,000 ML IV SCH ×2 (09:03→18:21)
[2018-08-24] MEDS ORDERED: PINK LADY ENEMA 490 ML BOTTLE PR ONE (14:30)
[2018-08-24 14:58] VITALS: BP 135/74
[2018-08-24] MEDS: NICOTINE 7 MG/24 HR PATCH.TD24 TD SCH (16:21)
[2018-08-24] MEDS: ONDANSETRON 2MG/ML, 2ML IVPush PRN (17:09)
[2018-08-24 19:26] VITALS: BP 124/77
[2018-08-24] MEDS: ATORVASTATIN 40 MG TABLET PO SCH (22:13)
[2018-08-25 01:56] VITALS: BP 129/68
[2018-08-25] MEDS: OMEPRAZOLE 20 MG CAPSULE.DR PO SCH (05:33)
[2018-08-25 07:10] VITALS: BP 129/70
[2018-08-25 08:19] LABS: ANION GAP 6 mmol/L (5-15); CHLORIDE 109 mmol/L (98-107); CREATININE 1.44 mg/dL (0.7-1.3)
[2018-08-25 13:31] VITALS: BP 161/84
[2018-08-25] MEDS: SODIUM CHLORIDE 0.9% 1,000 ML IV SCH (14:03)
[2018-08-25] MEDS: NICOTINE 7 MG/24 HR PATCH.TD24 TD SCH (15:23)
[2018-08-25] MEDS: AMLODIPINE 10 MG TAB PO SCH (16:23)
[2018-08-25] MEDS: POLYETHYLENE GLYCOL 17 GM PACKET PO SCH (16:23)
[2018-08-25 19:15] VITALS: BP 144/75
[2018-08-25] MEDS: ATORVASTATIN 40 MG TABLET PO SCH (22:04)
[2018-08-26 01:24] VITALS: BP 153/79
[2018-08-26] MEDS: SODIUM CHLORIDE 0.9% 1,000 ML IV SCH (02:41)
[2018-08-26 05:51] LABS: ANION GAP 8 mmol/L (5-15); CHLORIDE 110 mmol/L (98-107)
[2018-08-26] MEDS: OMEPRAZOLE 20 MG CAPSULE.DR PO SCH (05:55)
[2018-08-26 05:57] LABS: CALCIUM 8.4 mg/dL (8.5-10.1); CREATININE 1.34 mg/dL (0.7-1.3)
[2018-08-26 07:20] VITALS: BP 149/82
[2018-08-26] MEDS: DOCUSATE 100 MG CAPSULE PO PRN (08:12)
[2018-08-26] MEDS: AMLODIPINE 10 MG TAB PO SCH (08:12)
[2018-08-26] MEDS: POLYETHYLENE GLYCOL 17 GM PACKET PO SCH (08:12)
[2018-08-26 13:56] VITALS: BP 152/79
[2018-08-26] MEDS ORDERED: GLYCERIN ADULT SUPP ONE (15:11)
[2018-08-26] MEDS ORDERED: GLYCERIN ADULT SUPP PR ONE (15:30)
[2018-08-26] MEDS: NICOTINE 7 MG/24 HR PATCH.TD24 TD SCH (15:39)
[2018-08-26 18:49] VITALS: BP 123/71
[2018-08-26] MEDS: ATORVASTATIN 40 MG TABLET PO SCH (19:42)
[2018-08-27 01:54] VITALS: BP 137/77
[2018-08-27] MEDS: OMEPRAZOLE 20 MG CAPSULE.DR PO SCH (05:21)
[2018-08-27 07:10] VITALS: BP 153/87
[2018-08-27] MEDS: AMLODIPINE 10 MG TAB PO SCH (08:24)
[2018-08-27] MEDS: POLYETHYLENE GLYCOL 17 GM PACKET PO SCH (08:24)
[2018-08-27 14:11] VITALS: BP 138/81
[2018-08-27] MEDS: NICOTINE 7 MG/24 HR PATCH.TD24 TD SCH (15:42)
[2018-08-27] MEDS: ATORVASTATIN 40 MG TABLET PO SCH (20:24)
[2018-08-27 21:32] VITALS: BP 153/89
[2018-08-28 02:13] VITALS: BP 157/94
[2018-08-28] MEDS: OMEPRAZOLE 20 MG CAPSULE.DR PO SCH (05:19)
[2018-08-28] MEDS: POLYETHYLENE GLYCOL 17 GM PACKET PO SCH (08:42)
[2018-08-28] MEDS: AMLODIPINE 10 MG TAB PO SCH (08:42)
[2018-08-28 09:14] VITALS: BP 149/78
[2018-08-28 14:49] VITALS: BP 134/85
[2018-08-28] MEDS: NICOTINE 7 MG/24 HR PATCH.TD24 TD SCH (15:05)
[2018-08-28 18:40] VITALS: BP 131/89
[2018-08-28] MEDS: ATORVASTATIN 40 MG TABLET PO SCH (20:08)
[2018-08-29 01:38] VITALS: BP 146/95
[2018-08-29] MEDS: OMEPRAZOLE 20 MG CAPSULE.DR PO SCH (05:51)
[2018-08-29 06:02] LABS: ALBUMIN 3.3 g/dL (3.4-5.0); ANION GAP 10 mmol/L (5-15); CALCIUM 8.9 mg/dL (8.5-10.1); CHLORIDE 106 mmol/L (98-107)
[2018-08-29 06:04] LABS: CREATININE 1.59 mg/dL (0.7-1.3)
[2018-08-29 08:30] VITALS: BP 147/84
[2018-08-29] MEDS: AMLODIPINE 10 MG TAB PO SCH (09:46)
[2018-08-29] MEDS: POLYETHYLENE GLYCOL 17 GM PACKET PO SCH (09:46)
[2018-08-29] MEDS: TAMSULOSIN 0.4 MG CAP.ER.24H PO SCH (12:53)
[2018-08-29 14:00] VITALS: BP 109/62
[2018-08-29] MEDS: NICOTINE 7 MG/24 HR PATCH.TD24 TD SCH (16:54)
[2018-08-29] MEDS: ATORVASTATIN 40 MG TABLET PO SCH (20:08)
[2018-08-29 20:32] VITALS: BP 142/82
[2018-08-30 02:56] VITALS: BP 101/68
[2018-08-30] MEDS: OMEPRAZOLE 20 MG CAPSULE.DR PO SCH (05:54)
[2018-08-30 07:58] VITALS: BP 120/74
[2018-08-30] MEDS: AMLODIPINE 10 MG TAB PO SCH (10:11)
[2018-08-30] MEDS: POLYETHYLENE GLYCOL 17 GM PACKET PO SCH (10:11)
[2018-08-30] MEDS: TAMSULOSIN 0.4 MG CAP.ER.24H PO SCH (10:11)
[2018-08-30 12:37] VITALS: BP 132/90
[2018-08-30] MEDS: NICOTINE 7 MG/24 HR PATCH.TD24 TD SCH (16:30)
[2018-08-30 18:27] VITALS: BP 125/81
[2018-08-30] MEDS: ATORVASTATIN 40 MG TABLET PO SCH (21:20)
[2018-08-30] MEDS: ONDANSETRON ODT 4 MG PO PRN (23:57)
[2018-08-31 00:36] VITALS: BP 129/85
[2018-08-31 04:18] LABS: ALBUMIN 3.3 g/dL (3.4-5.0); ANION GAP 8 mmol/L (5-15); CALCIUM 8.7 mg/dL (8.5-10.1); CHLORIDE 106 mmol/L (98-107)
[2018-08-31 04:19] LABS: CREATININE 1.51 mg/dL (0.7-1.3)
[2018-08-31] MEDS: OMEPRAZOLE 20 MG CAPSULE.DR PO SCH (05:26)
[2018-08-31 07:28] VITALS: BP 130/82
[2018-08-31] MEDS: TAMSULOSIN 0.4 MG CAP.ER.24H PO SCH (08:44)
[2018-08-31] MEDS: AMLODIPINE 10 MG TAB PO SCH (08:44)
[2018-08-31] MEDS: POLYETHYLENE GLYCOL 17 GM PACKET PO SCH (08:44)
[2018-08-31] MEDS: DOCUSATE 100 MG CAPSULE PO PRN (08:44)
[2018-08-31] MEDS: SODIUM CHLORIDE 0.9% 1,000 ML IV SCH ×2 (08:45→21:06)
[2018-08-31 14:07] VITALS: BP 126/77
[2018-08-31] MEDS: NICOTINE 7 MG/24 HR PATCH.TD24 TD SCH (15:33)
[2018-08-31 20:00] VITALS: BP 105/62
[2018-08-31] MEDS: ATORVASTATIN 40 MG TABLET PO SCH (21:05)
[2018-09-01 02:00] VITALS: BP 124/73
[2018-09-01] MEDS: OMEPRAZOLE 20 MG CAPSULE.DR PO SCH (05:45)
[2018-09-01 07:26] VITALS: BP 134/78
[2018-09-01 08:47] LABS: BASOPHILS # (AUTO) 0.07 x10^3/uL (0-0.1); BASOPHILS % (AUTO) 1 % (0-1); EOSINOPHILS # (AUTO) 0.39 x10^3/uL (0-0.4); EOSINOPHILS % (AUTO) 4 % (1-7); LYMPHOCYTES # (AUTO) 2.63 x10^3/uL (1-3.4); LYMPHOCYTES % (AUTO) 30 % (22-44); MD NO; MEAN CORPUSCULAR HEMOGLOBIN 27.3 pg (27.5-34.5); MEAN CORPUSCULAR HGB CONC 32.3 g/dL (33.2-36.2); MEAN CORPUSCULAR VOLUME 84.6 fL (81-97); MEAN PLATELET VOLUME 10.9 fL (7.4-10.4); MONOCYTES # (AUTO) 0.56 x10^3/uL (0.2-0.8); MONOCYTES % (AUTO) 6 % (2-9); NEUTROPHILS # (AUTO) 5.13 x10^3/uL (1.8-6.8); NEUTROPHILS % (AUTO) 58 % (42-75); PLATELET COUNT 227 x10^3/uL (130-400); RED BLOOD COUNT 4.65 x10^6/uL (4.38-5.82); RED CELL DISTRIBUTION WIDTH 16.7 % (9.4-14.8)
[2018-09-01 09:00] LABS: ALBUMIN 3.1 g/dL (3.4-5.0); ANION GAP 6 mmol/L (5-15); CALCIUM 7.6 mg/dL (8.5-10.1); CHLORIDE 110 mmol/L (98-107)
[2018-09-01] MEDS ORDERED: BISACODYL 10 MG SUPP PR ONE (09:00)
[2018-09-01] MEDS ORDERED: MAGNESIUM CITRATE 300ML ORAL SOL PO ONE (09:00)
[2018-09-01 09:01] LABS: CREATININE 1.45 mg/dL (0.7-1.3)
[2018-09-01] MEDS: POLYETHYLENE GLYCOL 17 GM PACKET PO SCH (09:02)
[2018-09-01] MEDS: AMLODIPINE 10 MG TAB PO SCH (09:02)
[2018-09-01] MEDS: TAMSULOSIN 0.4 MG CAP.ER.24H PO SCH (09:02)
[2018-09-01] MEDS: LACTOBACILLUS CHEW TABLET PO SCH ×3 (09:44→22:26)
[2018-09-01] MEDS: HEPARIN 5,000 UNITS/ML, 1ML SQ SCH ×2 (09:44→22:26)
[2018-09-01] MEDS: ONDANSETRON ODT 4 MG PO PRN (10:59)
[2018-09-01 14:00] VITALS: BP 137/84
[2018-09-01] MEDS: CARVEDILOL 6.25 MG TABLET PO SCH (18:02)
[2018-09-01 18:58] VITALS: BP 129/78
[2018-09-01] MEDS: ATORVASTATIN 40 MG TABLET PO SCH (22:26)
[2018-09-02 02:45] VITALS: BP 117/63
[2018-09-02] MEDS: CARVEDILOL 6.25 MG TABLET PO SCH ×2 (06:20→17:08)
[2018-09-02] MEDS: OMEPRAZOLE 20 MG CAPSULE.DR PO SCH (06:20)
[2018-09-02 06:30] VITALS: BP 135/76
[2018-09-02] MEDS: TAMSULOSIN 0.4 MG CAP.ER.24H PO SCH (08:03)
[2018-09-02] MEDS: HEPARIN 5,000 UNITS/ML, 1ML SQ SCH ×2 (08:03→20:50)
[2018-09-02] MEDS: SODIUM CHLORIDE 0.9% 1,000 ML IV SCH (08:03)
[2018-09-02] MEDS: POLYETHYLENE GLYCOL 17 GM PACKET PO SCH (08:03)
[2018-09-02] MEDS: LACTOBACILLUS CHEW TABLET PO SCH ×3 (08:03→20:49)
[2018-09-02 12:05] VITALS: BP 118/65
[2018-09-02 19:20] VITALS: BP 106/58
[2018-09-02] MEDS: ATORVASTATIN 40 MG TABLET PO SCH (20:49)
[2018-09-03 01:35] VITALS: BP 125/64
[2018-09-03] MEDS: SODIUM CHLORIDE 0.9% 1,000 ML IV SCH ×2 (03:26→21:15)
[2018-09-03 05:40] VITALS: BP 120/68
[2018-09-03] MEDS: OMEPRAZOLE 20 MG CAPSULE.DR PO SCH (05:46)
[2018-09-03 06:39] VITALS: BP 121/66
[2018-09-03] MEDS: POLYETHYLENE GLYCOL 17 GM PACKET PO SCH (09:34)
[2018-09-03] MEDS: LACTOBACILLUS CHEW TABLET PO SCH ×3 (09:34→21:13)
[2018-09-03] MEDS: HEPARIN 5,000 UNITS/ML, 1ML SQ SCH ×2 (09:34→21:13)
[2018-09-03] MEDS: TAMSULOSIN 0.4 MG CAP.ER.24H PO SCH (09:34)
[2018-09-03] MEDS: CARVEDILOL 6.25 MG TABLET PO SCH ×2 (09:34→16:38)
[2018-09-03 12:15] VITALS: BP 123/74
[2018-09-03 18:36] VITALS: BP 118/70
[2018-09-03] MEDS: ATORVASTATIN 40 MG TABLET PO SCH (21:13)
[2018-09-04 01:06] VITALS: BP 112/66
[2018-09-04 06:19] VITALS: BP 125/58
[2018-09-04] MEDS: OMEPRAZOLE 20 MG CAPSULE.DR PO SCH (06:22)
[2018-09-04] MEDS: CARVEDILOL 6.25 MG TABLET PO SCH ×3 (06:22→21:48)
[2018-09-04] MEDS: TAMSULOSIN 0.4 MG CAP.ER.24H PO SCH (09:17)
[2018-09-04] MEDS: LACTOBACILLUS CHEW TABLET PO SCH (09:17)
[2018-09-04] MEDS: POLYETHYLENE GLYCOL 17 GM PACKET PO SCH (09:17)
[2018-09-04] MEDS: HEPARIN 5,000 UNITS/ML, 1ML SQ SCH ×2 (09:17→21:45)
[2018-09-04] MEDS: ONDANSETRON ODT 4 MG PO PRN (10:56)
[2018-09-04 13:40] VITALS: BP 140/60
[2018-09-04 18:26] LABS: CULTURE INDICATED? YES; MICROSCOPIC INDICATED
[2018-09-04 18:43] VITALS: BP 146/65
[2018-09-04] MEDS: ATORVASTATIN 40 MG TABLET PO SCH (21:45)
[2018-09-04 21:48] VITALS: BP 125/63
[2018-09-05 01:04] VITALS: BP 138/57
[2018-09-05] MEDS: OMEPRAZOLE 20 MG CAPSULE.DR PO SCH ×2 (05:28→05:38)
[2018-09-05 07:58] VITALS: BP 137/71
[2018-09-05] MEDS: POLYETHYLENE GLYCOL 17 GM PACKET PO SCH (10:15)
[2018-09-05] MEDS: HEPARIN 5,000 UNITS/ML, 1ML SQ SCH ×2 (10:16→21:17)
[2018-09-05] MEDS: TAMSULOSIN 0.4 MG CAP.ER.24H PO SCH (10:16)
[2018-09-05 10:37] LABS: BASOPHILS # (AUTO) 0.03 x10^3/uL (0-0.1); BASOPHILS % (AUTO) 0 % (0-1); EOSINOPHILS # (AUTO) 0.32 x10^3/uL (0-0.4); EOSINOPHILS % (AUTO) 4 % (1-7); LYMPHOCYTES # (AUTO) 1.91 x10^3/uL (1-3.4); LYMPHOCYTES % (AUTO) 23 % (22-44); MD NO; MEAN CORPUSCULAR HGB CONC 32.9 g/dL (33.2-36.2); MEAN CORPUSCULAR VOLUME 85.1 fL (81-97); MEAN PLATELET VOLUME 11.3 fL (7.4-10.4); MONOCYTES # (AUTO) 0.37 x10^3/uL (0.2-0.8); MONOCYTES % (AUTO) 5 % (2-9); NEUTROPHILS # (AUTO) 5.65 x10^3/uL (1.8-6.8); NEUTROPHILS % (AUTO) 68 % (42-75); PLATELET COUNT 249 x10^3/uL (130-400); RED BLOOD COUNT 5.13 x10^6/uL (4.38-5.82); RED CELL DISTRIBUTION WIDTH 17.4 % (9.4-14.8)
[2018-09-05 10:49] LABS: ALANINE AMINOTRANSFERASE 26 U/L (12-78); ALBUMIN 3.3 g/dL (3.4-5.0); ANION GAP 8 mmol/L (5-15); CALCIUM 8.7 mg/dL (8.5-10.1); CHLORIDE 108 mmol/L (98-107); CREATININE 1.69 mg/dL (0.7-1.3)
[2018-09-05 10:51] LABS: ALKALINE PHOSPHATASE 66 U/L (45-117); BILIRUBIN,TOTAL 0.3 mg/dL (0.2-1.0); TOTAL PROTEIN 7.1 g/dL (6.4-8.2)
[2018-09-05 12:50] VITALS: BP 124/77
[2018-09-05] MEDS: CARVEDILOL 6.25 MG TABLET PO SCH (17:01)
[2018-09-05 19:48] VITALS: BP 137/73
[2018-09-05] MEDS: ATORVASTATIN 40 MG TABLET PO SCH (21:17)
[2018-09-06 01:42] VITALS: BP 144/82
[2018-09-06] MEDS: CARVEDILOL 6.25 MG TABLET PO SCH ×2 (05:41→18:56)
[2018-09-06] MEDS: OMEPRAZOLE 20 MG CAPSULE.DR PO SCH (05:41)
[2018-09-06 08:50] VITALS: BP 129/72
[2018-09-06] MEDS: POLYETHYLENE GLYCOL 17 GM PACKET PO SCH (10:23)
[2018-09-06] MEDS: HEPARIN 5,000 UNITS/ML, 1ML SQ SCH ×2 (10:23→20:13)
[2018-09-06] MEDS: TAMSULOSIN 0.4 MG CAP.ER.24H PO SCH (10:23)
[2018-09-06 13:45] VITALS: BP 123/72
[2018-09-06 18:50] VITALS: BP 108/68
[2018-09-06] MEDS: ATORVASTATIN 40 MG TABLET PO SCH (20:13)
[2018-09-06 21:06] VITALS: BP 103/64
[2018-09-07 01:58] VITALS: BP 100/56
[2018-09-07 05:36] LABS: ALBUMIN 2.9 g/dL (3.4-5.0); ANION GAP 6 mmol/L (5-15); CALCIUM 8.4 mg/dL (8.5-10.1); CHLORIDE 109 mmol/L (98-107); CREATININE 1.51 mg/dL (0.7-1.3)
[2018-09-07] MEDS: OMEPRAZOLE 20 MG CAPSULE.DR PO SCH (05:53)
[2018-09-07 05:54] VITALS: BP 112/58
[2018-09-07] MEDS: CARVEDILOL 6.25 MG TABLET PO SCH ×2 (05:54→18:27)
[2018-09-07 07:53] VITALS: BP 118/61
[2018-09-07] MEDS: POLYETHYLENE GLYCOL 17 GM PACKET PO SCH (10:02)
[2018-09-07] MEDS: TAMSULOSIN 0.4 MG CAP.ER.24H PO SCH (10:02)
[2018-09-07] MEDS: HEPARIN 5,000 UNITS/ML, 1ML SQ SCH ×2 (10:02→21:21)
[2018-09-07 14:00] VITALS: BP 135/75
[2018-09-07 18:25] VITALS: BP 127/71
[2018-09-07] MEDS: ATORVASTATIN 40 MG TABLET PO SCH (21:21)
[2018-09-08 02:50] VITALS: BP 135/72
[2018-09-08] MEDS: CARVEDILOL 6.25 MG TABLET PO SCH ×2 (06:00→17:10)
[2018-09-08 06:01] VITALS: BP 158/89
[2018-09-08] MEDS: OMEPRAZOLE 20 MG CAPSULE.DR PO SCH (06:02)
[2018-09-08] MEDS: POLYETHYLENE GLYCOL 17 GM PACKET PO SCH (07:53)
[2018-09-08] MEDS: HEPARIN 5,000 UNITS/ML, 1ML SQ SCH ×2 (08:45→21:54)
[2018-09-08] MEDS: TAMSULOSIN 0.4 MG CAP.ER.24H PO SCH (08:45)
[2018-09-08 13:16] VITALS: BP 151/76
[2018-09-08 19:00] VITALS: BP 146/77
[2018-09-08] MEDS: ATORVASTATIN 40 MG TABLET PO SCH (21:53)
[2018-09-09 00:27] VITALS: BP 149/75
[2018-09-09 05:41] LABS: ALBUMIN 2.9 g/dL (3.4-5.0); ANION GAP 5 mmol/L (5-15); CALCIUM 8.5 mg/dL (8.5-10.1); CHLORIDE 108 mmol/L (98-107); CREATININE 1.38 mg/dL (0.7-1.3)
[2018-09-09] MEDS: CARVEDILOL 6.25 MG TABLET PO SCH ×2 (06:23→18:01)
[2018-09-09] MEDS: OMEPRAZOLE 20 MG CAPSULE.DR PO SCH (06:23)
[2018-09-09 07:58] VITALS: BP 123/74
[2018-09-09] MEDS: TAMSULOSIN 0.4 MG CAP.ER.24H PO SCH (08:37)
[2018-09-09] MEDS: HEPARIN 5,000 UNITS/ML, 1ML SQ SCH ×2 (08:37→20:44)
[2018-09-09] MEDS: POLYETHYLENE GLYCOL 17 GM PACKET PO SCH (08:37)
[2018-09-09 13:06] VITALS: BP 145/77
[2018-09-09 18:32] VITALS: BP 136/67
[2018-09-09] MEDS: ATORVASTATIN 40 MG TABLET PO SCH (20:44)
[2018-09-10 00:39] VITALS: BP 134/71
[2018-09-10] MEDS: CARVEDILOL 6.25 MG TABLET PO SCH ×2 (06:01→18:00)
[2018-09-10] MEDS: OMEPRAZOLE 20 MG CAPSULE.DR PO SCH (06:01)
[2018-09-10 07:30] VITALS: BP 105/67
[2018-09-10] MEDS: POLYETHYLENE GLYCOL 17 GM PACKET PO SCH (07:50)
[2018-09-10] MEDS: TAMSULOSIN 0.4 MG CAP.ER.24H PO SCH (07:50)
[2018-09-10] MEDS: HEPARIN 5,000 UNITS/ML, 1ML SQ SCH ×2 (07:50→20:56)
[2018-09-10 12:43] VITALS: BP 112/64
[2018-09-10 18:37] VITALS: BP 110/69
[2018-09-10] MEDS: ATORVASTATIN 40 MG TABLET PO SCH (20:56)
[2018-09-11 00:22] VITALS: BP 121/72
[2018-09-11 05:07] VITALS: BP 134/76
[2018-09-11] MEDS: CARVEDILOL 6.25 MG TABLET PO SCH ×2 (05:10→18:20)
[2018-09-11] MEDS: OMEPRAZOLE 20 MG CAPSULE.DR PO SCH (05:11)
[2018-09-11 06:43] VITALS: BP 114/58
[2018-09-11] MEDS: HEPARIN 5,000 UNITS/ML, 1ML SQ SCH ×2 (09:30→21:09)
[2018-09-11] MEDS: TAMSULOSIN 0.4 MG CAP.ER.24H PO SCH (09:30)
[2018-09-11] MEDS: POLYETHYLENE GLYCOL 17 GM PACKET PO SCH (09:31)
[2018-09-11 12:53] VITALS: BP 135/80
[2018-09-11 18:19] VITALS: BP 137/84
[2018-09-11] MEDS: ATORVASTATIN 40 MG TABLET PO SCH (21:09)
[2018-09-11 21:29] VITALS: BP 131/72
[2018-09-12 02:12] VITALS: BP 120/70
[2018-09-12 05:43] VITALS: BP 127/71
[2018-09-12] MEDS: CARVEDILOL 6.25 MG TABLET PO SCH ×2 (05:47→18:37)
[2018-09-12] MEDS: OMEPRAZOLE 20 MG CAPSULE.DR PO SCH (05:47)
[2018-09-12 07:41] VITALS: BP 134/80
[2018-09-12] MEDS: HEPARIN 5,000 UNITS/ML, 1ML SQ SCH ×2 (09:14→20:54)
[2018-09-12] MEDS: TAMSULOSIN 0.4 MG CAP.ER.24H PO SCH (09:14)
[2018-09-12] MEDS: POLYETHYLENE GLYCOL 17 GM PACKET PO SCH (09:15)
[2018-09-12 12:32] VITALS: BP 110/70
[2018-09-12 19:31] VITALS: BP 145/78
[2018-09-12] MEDS: ATORVASTATIN 40 MG TABLET PO SCH (20:55)
[2018-09-13 01:13] VITALS: BP 113/57
[2018-09-13] MEDS: CARVEDILOL 6.25 MG TABLET PO SCH ×2 (05:44→17:25)
[2018-09-13] MEDS: OMEPRAZOLE 20 MG CAPSULE.DR PO SCH (05:44)
[2018-09-13 07:14] VITALS: BP 108/62
[2018-09-13] MEDS: TAMSULOSIN 0.4 MG CAP.ER.24H PO SCH (10:05)
[2018-09-13] MEDS: POLYETHYLENE GLYCOL 17 GM PACKET PO SCH (10:05)
[2018-09-13] MEDS: HEPARIN 5,000 UNITS/ML, 1ML SQ SCH ×2 (10:05→20:29)
[2018-09-13] MEDS ORDERED: ASPI-515 PO/NG (11:08)
[2018-09-13] MEDS ORDERED: ATOR40TA78 PO (11:08)
[2018-09-13] MEDS ORDERED: TAMS-11 PO (11:08)
[2018-09-13] MEDS ORDERED: CARV6.2512 PO (11:08)
[2018-09-13 13:19] VITALS: BP 141/73
[2018-09-13 18:47] VITALS: BP 124/71
[2018-09-13] MEDS: ATORVASTATIN 40 MG TABLET PO SCH (20:29)
[2018-09-14 02:26] VITALS: BP 107/56
[2018-09-14] MEDS: OMEPRAZOLE 20 MG CAPSULE.DR PO SCH (05:21)
[2018-09-14 05:24] VITALS: BP 111/65
[2018-09-14] MEDS: CARVEDILOL 6.25 MG TABLET PO SCH ×2 (05:25→17:44)
[2018-09-14] MEDS: POLYETHYLENE GLYCOL 17 GM PACKET PO SCH (08:22)
[2018-09-14] MEDS: HEPARIN 5,000 UNITS/ML, 1ML SQ SCH ×2 (08:22→22:05)
[2018-09-14] MEDS: TAMSULOSIN 0.4 MG CAP.ER.24H PO SCH (08:22)
[2018-09-14 08:31] VITALS: BP 142/77
[2018-09-14 13:07] VITALS: BP 133/82
[2018-09-14 21:50] VITALS: BP 115/54
[2018-09-14] MEDS: ATORVASTATIN 40 MG TABLET PO SCH (22:04)
[2018-09-15 01:56] VITALS: BP 123/66
[2018-09-15] MEDS: OMEPRAZOLE 20 MG CAPSULE.DR PO SCH (05:49)
[2018-09-15] MEDS: CARVEDILOL 6.25 MG TABLET PO SCH ×2 (05:49→17:44)
[2018-09-15 07:44] VITALS: BP 163/88
[2018-09-15] MEDS: TAMSULOSIN 0.4 MG CAP.ER.24H PO SCH (08:55)
[2018-09-15] MEDS: POLYETHYLENE GLYCOL 17 GM PACKET PO SCH (08:56)
[2018-09-15] MEDS: HEPARIN 5,000 UNITS/ML, 1ML SQ SCH ×2 (08:56→20:40)
[2018-09-15 12:15] VITALS: BP 149/92
[2018-09-15 17:40] VITALS: BP 174/71
[2018-09-15 19:57] VITALS: BP 123/71
[2018-09-15] MEDS: ATORVASTATIN 40 MG TABLET PO SCH (20:40)
[2018-09-16 01:39] VITALS: BP 132/64
[2018-09-16 05:25] VITALS: BP 131/68
[2018-09-16] MEDS: OMEPRAZOLE 20 MG CAPSULE.DR PO SCH (05:25)
[2018-09-16] MEDS: CARVEDILOL 6.25 MG TABLET PO SCH ×2 (05:26→17:44)
[2018-09-16 05:43] LABS: MEAN CORPUSCULAR HEMOGLOBIN 28.3 pg (27.5-34.5); MEAN CORPUSCULAR HGB CONC 32.9 g/dL (33.2-36.2); MEAN CORPUSCULAR VOLUME 85.9 fL (81-97); MEAN PLATELET VOLUME 11.6 fL (7.4-10.4); PLATELET COUNT 165 x10^3/uL (130-400); RED BLOOD COUNT 4.52 x10^6/uL (4.38-5.82); RED CELL DISTRIBUTION WIDTH 18.4 % (9.4-14.8)
[2018-09-16 05:45] LABS: ANION GAP 7 mmol/L (5-15); CALCIUM 8.6 mg/dL (8.5-10.1); CHLORIDE 108 mmol/L (98-107)
[2018-09-16 05:47] LABS: CREATININE 1.32 mg/dL (0.7-1.3)
[2018-09-16 08:10] LABS: BASOPHILS # (AUTO) 0.09 x10^3/uL (0-0.1); BASOPHILS % (AUTO) 1 % (0-1); EOSINOPHILS # (AUTO) 0.33 x10^3/uL (0-0.4); EOSINOPHILS % (AUTO) 4 % (1-7); LYMPHOCYTES # (AUTO) 2.64 x10^3/uL (1-3.4); LYMPHOCYTES % (AUTO) 30 % (22-44); MD SCAN; MONOCYTES # (AUTO) 0.41 x10^3/uL (0.2-0.8); MONOCYTES % (AUTO) 5 % (2-9); NEUTROPHILS # (AUTO) 5.35 x10^3/uL (1.8-6.8); NEUTROPHILS % (AUTO) 61 % (42-75)
[2018-09-16 08:15] LABS: BASOPHILS # (AUTO) 0.05 x10^3/uL (0-0.1); BASOPHILS % (AUTO) 1 % (0-1); EOSINOPHILS # (AUTO) 0.26 x10^3/uL (0-0.4); EOSINOPHILS % (AUTO) 4 % (1-7); LYMPHOCYTES # (AUTO) 1.97 x10^3/uL (1-3.4); LYMPHOCYTES % (AUTO) 28 % (22-44); MD NO; MEAN CORPUSCULAR HEMOGLOBIN 27.6 pg (27.5-34.5); MEAN CORPUSCULAR HGB CONC 32.2 g/dL (33.2-36.2); MEAN CORPUSCULAR VOLUME 85.8 fL (81-97); MEAN PLATELET VOLUME 10.6 fL (7.4-10.4); MONOCYTES # (AUTO) 0.51 x10^3/uL (0.2-0.8); MONOCYTES % (AUTO) 7 % (2-9); NEUTROPHILS # (AUTO) 4.26 x10^3/uL (1.8-6.8); NEUTROPHILS % (AUTO) 60 % (42-75); PLATELET COUNT 261 x10^3/uL (130-400); RED BLOOD COUNT 4.59 x10^6/uL (4.38-5.82); RED CELL DISTRIBUTION WIDTH 18.4 % (9.4-14.8)
[2018-09-16 08:30] VITALS: BP 145/76
[2018-09-16] MEDS: TAMSULOSIN 0.4 MG CAP.ER.24H PO SCH (08:34)
[2018-09-16] MEDS: HEPARIN 5,000 UNITS/ML, 1ML SQ SCH ×2 (08:34→20:25)
[2018-09-16] MEDS: POLYETHYLENE GLYCOL 17 GM PACKET PO SCH (08:35)
[2018-09-16 15:10] VITALS: BP 125/73
[2018-09-16 17:42] VITALS: BP 147/82
[2018-09-16 19:49] VITALS: BP 113/68
[2018-09-16] MEDS: ATORVASTATIN 40 MG TABLET PO SCH (20:25)
[2018-09-17 02:40] VITALS: BP 103/73
[2018-09-17 04:59] VITALS: BP 108/62
[2018-09-17] MEDS: OMEPRAZOLE 20 MG CAPSULE.DR PO SCH (05:02)
[2018-09-17] MEDS: CARVEDILOL 6.25 MG TABLET PO SCH ×2 (05:02→17:39)
[2018-09-17 05:40] LABS: BASOPHILS # (AUTO) 0.05 x10^3/uL (0-0.1); BASOPHILS % (AUTO) 1 % (0-1); EOSINOPHILS # (AUTO) 0.21 x10^3/uL (0-0.4); EOSINOPHILS % (AUTO) 3 % (1-7); LYMPHOCYTES # (AUTO) 1.92 x10^3/uL (1-3.4); LYMPHOCYTES % (AUTO) 28 % (22-44); MD NO; MEAN CORPUSCULAR HEMOGLOBIN 28.3 pg (27.5-34.5); MEAN CORPUSCULAR HGB CONC 32.8 g/dL (33.2-36.2); MEAN CORPUSCULAR VOLUME 86.3 fL (81-97); MEAN PLATELET VOLUME 10.5 fL (7.4-10.4); MONOCYTES # (AUTO) 0.51 x10^3/uL (0.2-0.8); MONOCYTES % (AUTO) 8 % (2-9); NEUTROPHILS # (AUTO) 4.09 x10^3/uL (1.8-6.8); NEUTROPHILS % (AUTO) 60 % (42-75); PLATELET COUNT 258 x10^3/uL (130-400); RED BLOOD COUNT 4.31 x10^6/uL (4.38-5.82); RED CELL DISTRIBUTION WIDTH 18.8 % (9.4-14.8)
[2018-09-17 05:51] LABS: ANION GAP 7 mmol/L (5-15); CALCIUM 8.2 mg/dL (8.5-10.1); CHLORIDE 107 mmol/L (98-107)
[2018-09-17 05:52] LABS: CREATININE 1.47 mg/dL (0.7-1.3)
[2018-09-17 06:45] VITALS: BP 115/62
[2018-09-17] MEDS: TAMSULOSIN 0.4 MG CAP.ER.24H PO SCH (09:04)
[2018-09-17] MEDS: POLYETHYLENE GLYCOL 17 GM PACKET PO SCH (09:04)
[2018-09-17] MEDS: HEPARIN 5,000 UNITS/ML, 1ML SQ SCH ×2 (09:06→21:04)
[2018-09-17 15:27] VITALS: BP 131/84
[2018-09-17 17:37] VITALS: BP 133/77
[2018-09-17 19:33] VITALS: BP 127/81
[2018-09-17] MEDS: ATORVASTATIN 40 MG TABLET PO SCH (21:04)
[2018-09-17] MEDS: DOCUSATE 100 MG CAPSULE PO PRN (21:17)
[2018-09-18 01:57] VITALS: BP 122/75
[2018-09-18] MEDS: CARVEDILOL 6.25 MG TABLET PO SCH ×2 (06:00→18:00)
[2018-09-18] MEDS: OMEPRAZOLE 20 MG CAPSULE.DR PO SCH (06:13)
[2018-09-18 06:14] VITALS: BP 116/58
[2018-09-18 08:10] VITALS: BP 133/77
[2018-09-18] MEDS: TAMSULOSIN 0.4 MG CAP.ER.24H PO SCH (09:06)
[2018-09-18] MEDS: HEPARIN 5,000 UNITS/ML, 1ML SQ SCH ×2 (09:06→19:41)
[2018-09-18] MEDS: POLYETHYLENE GLYCOL 17 GM PACKET PO SCH (09:06)
[2018-09-18 14:28] VITALS: BP 107/64
[2018-09-18 17:59] VITALS: BP 123/72
[2018-09-18 19:01] VITALS: BP 119/67
[2018-09-18] MEDS: ATORVASTATIN 40 MG TABLET PO SCH (19:41)
[2018-09-19 01:47] VITALS: BP 108/65
[2018-09-19 05:11] LABS: ALBUMIN 2.9 g/dL (3.4-5.0); ANION GAP 6 mmol/L (5-15); CALCIUM 8.3 mg/dL (8.5-10.1); CHLORIDE 108 mmol/L (98-107); CREATININE 1.84 mg/dL (0.7-1.3)
[2018-09-19 05:59] VITALS: BP 116/68
[2018-09-19] MEDS: CARVEDILOL 6.25 MG TABLET PO SCH ×2 (06:00→18:29)
[2018-09-19] MEDS: OMEPRAZOLE 20 MG CAPSULE.DR PO SCH (06:01)
[2018-09-19] MEDS ORDERED: SODIUM CHLORIDE 0.9% 500 ML IV SCH (07:00)
[2018-09-19 07:23] VITALS: BP 128/73
[2018-09-19] MEDS: TAMSULOSIN 0.4 MG CAP.ER.24H PO SCH (09:25)
[2018-09-19] MEDS: POLYETHYLENE GLYCOL 17 GM PACKET PO SCH (09:25)
[2018-09-19] MEDS: HEPARIN 5,000 UNITS/ML, 1ML SQ SCH ×2 (09:25→21:05)
[2018-09-19] MEDS: SODIUM CHLORIDE 0.9% 1,000 ML IV SCH ×2 (09:26→18:29)
[2018-09-19 13:40] VITALS: BP 114/70
[2018-09-19 20:23] VITALS: BP 127/83
[2018-09-19] MEDS: ATORVASTATIN 40 MG TABLET PO SCH (21:05)
[2018-09-20 02:28] VITALS: BP 116/65
[2018-09-20] MEDS: SODIUM CHLORIDE 0.9% 1,000 ML IV SCH (02:35)
[2018-09-20 05:28] LABS: CHLORIDE 110 mmol/L (98-107)
[2018-09-20 05:32] LABS: ALBUMIN 2.7 g/dL (3.4-5.0); ANION GAP 4 mmol/L (5-15); CALCIUM 7.9 mg/dL (8.5-10.1); CREATININE 1.52 mg/dL (0.7-1.3)
[2018-09-20] MEDS: OMEPRAZOLE 20 MG CAPSULE.DR PO SCH (05:38)
[2018-09-20 05:40] VITALS: BP 154/70
[2018-09-20] MEDS: CARVEDILOL 6.25 MG TABLET PO SCH ×2 (05:41→19:41)
[2018-09-20] MEDS ORDERED: SODIUM CHLORIDE 0.9% 1,000 ML IV SCH (07:00)
[2018-09-20 07:10] VITALS: BP 128/72
[2018-09-20] MEDS: HEPARIN 5,000 UNITS/ML, 1ML SQ SCH ×2 (11:03→21:51)
[2018-09-20] MEDS: POLYETHYLENE GLYCOL 17 GM PACKET PO SCH (11:03)
[2018-09-20] MEDS: TAMSULOSIN 0.4 MG CAP.ER.24H PO SCH (11:03)
[2018-09-20 13:24] VITALS: BP 157/79
[2018-09-20 19:53] VITALS: BP 155/81
[2018-09-20] MEDS: ATORVASTATIN 40 MG TABLET PO SCH (21:51)
[2018-09-21 02:03] VITALS: BP 144/73
[2018-09-21] MEDS: CARVEDILOL 6.25 MG TABLET PO SCH ×2 (05:55→18:28)
[2018-09-21] MEDS: OMEPRAZOLE 20 MG CAPSULE.DR PO SCH (05:55)
[2018-09-21 07:05] VITALS: BP 134/66
[2018-09-21] MEDS: POLYETHYLENE GLYCOL 17 GM PACKET PO SCH (09:00)
[2018-09-21] MEDS: TAMSULOSIN 0.4 MG CAP.ER.24H PO SCH (10:18)
[2018-09-21] MEDS: HEPARIN 5,000 UNITS/ML, 1ML SQ SCH ×2 (10:19→22:38)
[2018-09-21 13:40] VITALS: BP 135/75
[2018-09-21 20:00] VITALS: BP 133/70
[2018-09-21] MEDS: ATORVASTATIN 40 MG TABLET PO SCH (22:38)
[2018-09-22 02:00] VITALS: BP 120/76
[2018-09-22] MEDS: OMEPRAZOLE 20 MG CAPSULE.DR PO SCH (06:29)
[2018-09-22] MEDS: CARVEDILOL 6.25 MG TABLET PO SCH ×2 (06:29→17:58)
[2018-09-22 07:17] VITALS: BP 120/69
[2018-09-22 08:50] LABS: BASOPHILS # (AUTO) 0.06 x10^3/uL (0-0.1); BASOPHILS % (AUTO) 1 % (0-1); EOSINOPHILS # (AUTO) 0.21 x10^3/uL (0-0.4); EOSINOPHILS % (AUTO) 3 % (1-7); LYMPHOCYTES % (AUTO) 28 % (22-44); MD NO; MEAN CORPUSCULAR HEMOGLOBIN 27.9 pg (27.5-34.5); MEAN CORPUSCULAR HGB CONC 31.9 g/dL (33.2-36.2); MEAN CORPUSCULAR VOLUME 87.5 fL (81-97); MEAN PLATELET VOLUME 11.1 fL (7.4-10.4); MONOCYTES # (AUTO) 0.33 x10^3/uL (0.2-0.8); MONOCYTES % (AUTO) 5 % (2-9); NEUTROPHILS # (AUTO) 4.09 x10^3/uL (1.8-6.8); NEUTROPHILS % (AUTO) 63 % (42-75); PLATELET COUNT 248 x10^3/uL (130-400); RED BLOOD COUNT 4.51 x10^6/uL (4.38-5.82); RED CELL DISTRIBUTION WIDTH 19.2 % (9.4-14.8)
[2018-09-22 08:56] LABS: ANION GAP 3 mmol/L (5-15); CALCIUM 8.7 mg/dL (8.5-10.1); CHLORIDE 109 mmol/L (98-107); CREATININE 1.46 mg/dL (0.7-1.3)
[2018-09-22] MEDS: POLYETHYLENE GLYCOL 17 GM PACKET PO SCH (09:15)
[2018-09-22] MEDS: HEPARIN 5,000 UNITS/ML, 1ML SQ SCH ×2 (09:15→20:35)
[2018-09-22] MEDS: TAMSULOSIN 0.4 MG CAP.ER.24H PO SCH (09:15)
[2018-09-22 15:36] VITALS: BP 110/60
[2018-09-22] MEDS: DOCUSATE 100 MG CAPSULE PO PRN (17:59)
[2018-09-22 19:56] VITALS: BP 116/70
[2018-09-22] MEDS: ATORVASTATIN 40 MG TABLET PO SCH (20:34)
[2018-09-23 01:39] VITALS: BP 117/65
[2018-09-23] MEDS: CARVEDILOL 6.25 MG TABLET PO SCH ×2 (05:40→17:38)
[2018-09-23] MEDS: OMEPRAZOLE 20 MG CAPSULE.DR PO SCH (05:44)
[2018-09-23 06:33] VITALS: BP 107/61
[2018-09-23] MEDS: POLYETHYLENE GLYCOL 17 GM PACKET PO SCH ×2 (09:00→10:04)
[2018-09-23] MEDS: HEPARIN 5,000 UNITS/ML, 1ML SQ SCH ×2 (10:04→19:36)
[2018-09-23] MEDS: TAMSULOSIN 0.4 MG CAP.ER.24H PO SCH (10:04)
[2018-09-23 13:23] VITALS: BP 104/63
[2018-09-23 17:36] VITALS: BP 149/77
[2018-09-23 19:33] VITALS: BP 120/72
[2018-09-23] MEDS: ATORVASTATIN 40 MG TABLET PO SCH (19:36)
[2018-09-24 00:17] VITALS: BP 145/75
[2018-09-24 05:18] VITALS: BP 118/65
[2018-09-24] MEDS: CARVEDILOL 6.25 MG TABLET PO SCH ×2 (05:20→17:34)
[2018-09-24] MEDS: OMEPRAZOLE 20 MG CAPSULE.DR PO SCH (05:20)
[2018-09-24 06:48] VITALS: BP 128/67
[2018-09-24] MEDS: POLYETHYLENE GLYCOL 17 GM PACKET PO SCH (09:00)
[2018-09-24] MEDS: TAMSULOSIN 0.4 MG CAP.ER.24H PO SCH (10:01)
[2018-09-24] MEDS: HEPARIN 5,000 UNITS/ML, 1ML SQ SCH (10:01)
[2018-09-24 12:17] VITALS: BP 103/60
[2018-09-24] MEDS ORDERED: OMEP-110 PO (15:16)
[2018-09-24 17:32] VITALS: BP 152/76
== END 2018-09-24 18:44 | DRG 871 ==
LOC: ED 15:18 → SUATTDRO 16:24 → EDIP 16:25 → 4WST 21:13 → 3NE 09-08 18:49
PROVIDERS: ADMIT Family Medicine; ATTEND Internal Medicine
PROC: 0T9B70Z Drainage of Bladder with Drainage Device, Via Natural or Artificial Opening (ICD-10-PCS; principal; 2018-07-30)
DX: A41.9 Sepsis, unspecified organism (principal); E43 Unspecified severe protein-calorie malnutrition; A04.72 Enterocolitis due to Clostridium difficile, not specified as recurrent; G93.40 Encephalopathy, unspecified; I47.2 Ventricular tachycardia; N17.9 Acute kidney failure, unspecified; N39.0 Urinary tract infection, site not specified; Z68.1 Body mass index [BMI] 19.9 or less, adult; D72.825 Bandemia; E83.39 Other disorders of phosphorus metabolism; E83.42 Hypomagnesemia; F03.90 Unspecified dementia, unspecified severity, without behavioral disturbance, psychotic disturbance, mood disturbance, and anxiety; E87.6 Hypokalemia; F17.200 Nicotine dependence, unspecified, uncomplicated; I13.10 Hypertensive heart and chronic kidney disease without heart failure, with stage 1 through stage 4 chronic kidney disease, or unspecified chronic kidney disease; R91.1 Solitary pulmonary nodule; Z66 Do not resuscitate; J44.9 Chronic obstructive pulmonary disease, unspecified; K21.9 Gastro-esophageal reflux disease without esophagitis; K44.9 Diaphragmatic hernia without obstruction or gangrene; K56.41 Fecal impaction; N18.3 Chronic kidney disease, stage 3 (moderate); N40.1 Benign prostatic hyperplasia with lower urinary tract symptoms; R33.8 Other retention of urine; Z59.0 Homelessness; Z86.73 Personal history of transient ischemic attack (TIA), and cerebral infarction without residual deficits; Z87.440 Personal history of urinary (tract) infections; Z91.81 History of falling
CPT/HCPCS: 36415; 70450; 70551; 71045; 74018; 74176; 74245; 76705; 80048; 80053; 80061; 80307; 81001; 82040; 82140; 82533; 82962; 83605; 83735; 84100; 84145; 85025; 85610; 85730; 87040; 87077; 87086; 87106; 87186; 87324; 93005; 93306; 93880; 96374; 96375; 99285; G0378; J0696; J1644; J2405; J3370; J3475; J3480; Q0162; J7030; J7040

== ENCOUNTER 2018-12-07 16:03 | Inpatient (IN) | payer MEDICARE ==
[~2018-12-07] VITALS: Ht 180.3 cm; Wt 60.1 kg
[~2018-12-07 16:03] MED LIST changes: +ASPI-515 PO/NG; +ATOR40TA78 PO; +CARV6.2512 PO; +CEFD300C37 PO; +OMEP-110 PO; +TAMS-11 PO
[2018-12-07] MEDS ORDERED: SODIUM CHLORIDE FLUSH 10ML SYR IVF ONE (17:30)
[2018-12-07 17:46] LABS: BASOPHILS # (AUTO) 0.09 x10^3/uL (0-0.1); BASOPHILS % (AUTO) 1 % (0-1); EOSINOPHILS # (AUTO) 0.07 x10^3/uL (0-0.4); EOSINOPHILS % (AUTO) 1 % (1-7); LYMPHOCYTES # (AUTO) 1.91 x10^3/uL (1-3.4); LYMPHOCYTES % (AUTO) 15 % (22-44); MD NO; MEAN CORPUSCULAR HEMOGLOBIN 29.4 pg (27.5-34.5); MEAN CORPUSCULAR HGB CONC 33.3 g/dL (33.2-36.2); MEAN CORPUSCULAR VOLUME 88.4 fL (81-97); MEAN PLATELET VOLUME 9.9 fL (7.4-10.4); MONOCYTES # (AUTO) 1.13 x10^3/uL (0.2-0.8); MONOCYTES % (AUTO) 9 % (2-9); NEUTROPHILS # (AUTO) 9.86 x10^3/uL (1.8-6.8); NEUTROPHILS % (AUTO) 76 % (42-75); PLATELET COUNT 318 x10^3/uL (130-400); RED BLOOD COUNT 4.36 x10^6/uL (4.38-5.82); RED CELL DISTRIBUTION WIDTH 14.8 % (9.4-14.8)
[2018-12-07 17:53] LABS: ALBUMIN 3.4 g/dL (3.4-5.0); ANION GAP 7 mmol/L (5-15); CALCIUM 8.8 mg/dL (8.5-10.1); CHLORIDE 109 mmol/L (98-107); CREATININE 1.77 mg/dL (0.7-1.3)
[2018-12-07 17:57] LABS: TROPONIN I 0.026 ng/mL (0.000-0.045)
[2018-12-07 18:13] LABS: MICROSCOPIC AUTO
[2018-12-07 18:20] LABS: CULTURE INDICATED? YES
[2018-12-07] MEDS ORDERED: LIDODERM 5% PATCH TD PRN (20:30)
[2018-12-07] MEDS ORDERED: TEMAZEPAM 15 MG CAPSULE PO PRN (20:30)
[2018-12-07] MEDS ORDERED: ONDANSETRON ODT 4 MG PO PRN (20:30)
[2018-12-07] MEDS ORDERED: DOCUSATE 100 MG CAPSULE PO PRN (20:30)
[2018-12-07] MEDS ORDERED: hydrALAzine 20 MG/ML, 1ML IVPush PRN (20:30)
[2018-12-07 20:40] VITALS: BP 119/75
[2018-12-07] MEDS: GABAPENTIN 300 MG CAPSULE PO PRN (22:40)
[2018-12-07] MEDS: HEPARIN 5,000 UNITS/ML, 1ML SQ SCH (22:40)
[2018-12-07] MEDS: CEFTRIAXONE PMX 2GM/50ML 50 ML IV SCH (22:40)
[2018-12-08 01:00] VITALS: BP 114/71
[2018-12-08] MEDS: HEPARIN 5,000 UNITS/ML, 1ML SQ SCH ×3 (04:39→21:30)
[2018-12-08 04:41] LABS: BASOPHILS # (AUTO) 0.08 x10^3/uL (0-0.1); BASOPHILS % (AUTO) 1 % (0-1); EOSINOPHILS # (AUTO) 0.19 x10^3/uL (0-0.4); EOSINOPHILS % (AUTO) 2 % (1-7); LYMPHOCYTES # (AUTO) 2.16 x10^3/uL (1-3.4); LYMPHOCYTES % (AUTO) 22 % (22-44); MD NO; MEAN CORPUSCULAR HEMOGLOBIN 28.5 pg (27.5-34.5); MEAN CORPUSCULAR HGB CONC 32.5 g/dL (33.2-36.2); MEAN CORPUSCULAR VOLUME 87.8 fL (81-97); MEAN PLATELET VOLUME 10.2 fL (7.4-10.4); MONOCYTES # (AUTO) 0.86 x10^3/uL (0.2-0.8); MONOCYTES % (AUTO) 9 % (2-9); NEUTROPHILS # (AUTO) 6.36 x10^3/uL (1.8-6.8); NEUTROPHILS % (AUTO) 66 % (42-75); PLATELET COUNT 308 x10^3/uL (130-400); RED BLOOD COUNT 4.13 x10^6/uL (4.38-5.82); RED CELL DISTRIBUTION WIDTH 15.3 % (9.4-14.8)
[2018-12-08 04:44] LABS: ANION GAP 12 mmol/L (5-15); CALCIUM 8.4 mg/dL (8.5-10.1); CHLORIDE 110 mmol/L (98-107); CREATININE 1.64 mg/dL (0.7-1.3)
[2018-12-08 06:50] VITALS: BP 111/63
[2018-12-08 12:01] VITALS: BP 116/53
[2018-12-08 18:42] VITALS: BP 111/59
[2018-12-08] MEDS: CEFTRIAXONE PMX 2GM/50ML 50 ML IV SCH (21:30)
[2018-12-09 01:19] VITALS: BP 114/68
[2018-12-09 05:07] LABS: BASOPHILS # (AUTO) 0.06 x10^3/uL (0-0.1); BASOPHILS % (AUTO) 1 % (0-1); EOSINOPHILS # (AUTO) 0.37 x10^3/uL (0-0.4); EOSINOPHILS % (AUTO) 5 % (1-7); LYMPHOCYTES # (AUTO) 2.13 x10^3/uL (1-3.4); LYMPHOCYTES % (AUTO) 31 % (22-44); MD NO; MEAN CORPUSCULAR HEMOGLOBIN 29.3 pg (27.5-34.5); MEAN CORPUSCULAR HGB CONC 33.1 g/dL (33.2-36.2); MEAN CORPUSCULAR VOLUME 88.4 fL (81-97); MEAN PLATELET VOLUME 10.1 fL (7.4-10.4); MONOCYTES # (AUTO) 0.68 x10^3/uL (0.2-0.8); MONOCYTES % (AUTO) 10 % (2-9); NEUTROPHILS # (AUTO) 3.55 x10^3/uL (1.8-6.8); NEUTROPHILS % (AUTO) 52 % (42-75); PLATELET COUNT 297 x10^3/uL (130-400); RED BLOOD COUNT 3.93 x10^6/uL (4.38-5.82); RED CELL DISTRIBUTION WIDTH 14.9 % (9.4-14.8)
[2018-12-09 05:22] LABS: ANION GAP 8 mmol/L (5-15); CALCIUM 7.9 mg/dL (8.5-10.1); CHLORIDE 112 mmol/L (98-107)
[2018-12-09 05:24] LABS: CREATININE 1.52 mg/dL (0.7-1.3)
[2018-12-09] MEDS: HEPARIN 5,000 UNITS/ML, 1ML SQ SCH ×3 (05:44→20:30)
[2018-12-09 06:38] VITALS: BP 132/83
[2018-12-09 14:32] VITALS: BP 121/67
[2018-12-09] MEDS: CARVEDILOL 6.25 MG TABLET PO SCH (18:00)
[2018-12-09 20:31] VITALS: BP_SYST 161; BP_SYST 166; BP_DIAS 86; BP_DIAS 88
[2018-12-09] MEDS: CEFTRIAXONE PMX 2GM/50ML 50 ML IV SCH (21:38)
[2018-12-09] MEDS: ACETAMINOPHEN 325 MG TABLET PO PRN (21:38)
[2018-12-09] MEDS: ATORVASTATIN 40 MG TABLET PO SCH (21:38)
[2018-12-10 00:07] VITALS: BP 152/82
[2018-12-10] MEDS: ACETAMINOPHEN 325 MG TABLET PO PRN ×2 (03:26→20:05)
[2018-12-10] MEDS: GABAPENTIN 300 MG CAPSULE PO PRN (03:26)
[2018-12-10] MEDS: HEPARIN 5,000 UNITS/ML, 1ML SQ SCH (04:30)
[2018-12-10] MEDS: CARVEDILOL 6.25 MG TABLET PO SCH ×2 (06:07→17:18)
[2018-12-10] MEDS: OMEPRAZOLE 20 MG CAPSULE.DR PO SCH (06:07)
[2018-12-10 06:45] VITALS: BP 138/82
[2018-12-10] MEDS ORDERED: CEFAZOLIN PMX 1GM/50ML 50 ML IV ONE (08:30)
[2018-12-10] MEDS: ASPIRIN 81 MG TABLET EC PO SCH (09:33)
[2018-12-10] MEDS: TAMSULOSIN 0.4 MG CAP.ER.24H PO SCH (09:33)
[2018-12-10 13:32] VITALS: BP 137/76
[2018-12-10 19:00] VITALS: BP 122/77
[2018-12-10] MEDS: CEFTRIAXONE PMX 2GM/50ML 50 ML IV SCH (20:05)
[2018-12-10] MEDS: ATORVASTATIN 40 MG TABLET PO SCH (20:05)
[2018-12-10] MEDS ORDERED: NITROFURANTOIN (MACROBID) 100 MG CAPSULE PO SCH (21:00)
[2018-12-11 00:50] VITALS: BP 130/78
[2018-12-11] MEDS: CARVEDILOL 6.25 MG TABLET PO SCH ×2 (05:28→18:16)
[2018-12-11] MEDS: OMEPRAZOLE 20 MG CAPSULE.DR PO SCH (05:28)
[2018-12-11 06:35] VITALS: BP 129/73
[2018-12-11] MEDS: ASPIRIN 81 MG TABLET EC PO SCH (09:14)
[2018-12-11] MEDS: TAMSULOSIN 0.4 MG CAP.ER.24H PO SCH (09:14)
[2018-12-11] MEDS ORDERED: CEFD300C37 PO ×2 (10:04)
[2018-12-11 14:06] VITALS: BP 102/65
[2018-12-11 18:04] VITALS: BP 137/80
[2018-12-11 19:18] VITALS: BP 107/59
[2018-12-11] MEDS: CEFTRIAXONE PMX 2GM/50ML 50 ML IV SCH (19:53)
[2018-12-11] MEDS: GABAPENTIN 300 MG CAPSULE PO PRN (19:53)
[2018-12-11] MEDS: ATORVASTATIN 40 MG TABLET PO SCH (19:53)
[2018-12-12 02:16] VITALS: BP 130/82
[2018-12-12] MEDS: CARVEDILOL 6.25 MG TABLET PO SCH ×2 (05:09→18:15)
[2018-12-12] MEDS: OMEPRAZOLE 20 MG CAPSULE.DR PO SCH (05:09)
[2018-12-12] MEDS: TAMSULOSIN 0.4 MG CAP.ER.24H PO SCH (09:07)
[2018-12-12] MEDS: ASPIRIN 81 MG TABLET EC PO SCH (09:07)
[2018-12-12 09:27] VITALS: BP 154/77
[2018-12-12 14:00] VITALS: BP 107/59
[2018-12-12 18:35] VITALS: BP 120/70
[2018-12-12] MEDS: GABAPENTIN 300 MG CAPSULE PO PRN (20:24)
[2018-12-12] MEDS: ATORVASTATIN 40 MG TABLET PO SCH (20:24)
[2018-12-12] MEDS: CEFTRIAXONE PMX 2GM/50ML 50 ML IV SCH (20:24)
[2018-12-13 00:32] VITALS: BP 139/69
[2018-12-13] MEDS: CARVEDILOL 6.25 MG TABLET PO SCH ×2 (06:02→18:22)
[2018-12-13] MEDS: OMEPRAZOLE 20 MG CAPSULE.DR PO SCH (06:03)
[2018-12-13 06:36] VITALS: BP 135/74
[2018-12-13] MEDS: ASPIRIN 81 MG TABLET EC PO SCH (08:03)
[2018-12-13] MEDS: TAMSULOSIN 0.4 MG CAP.ER.24H PO SCH (08:03)
[2018-12-13 12:38] VITALS: BP 109/67
[2018-12-13 19:36] VITALS: BP 121/77
[2018-12-13] MEDS: CEFTRIAXONE PMX 2GM/50ML 50 ML IV SCH ×2 (20:17→20:30)
[2018-12-13] MEDS: ATORVASTATIN 40 MG TABLET PO SCH (20:17)
[2018-12-14 01:20] VITALS: BP 98/63
[2018-12-14] MEDS: CARVEDILOL 6.25 MG TABLET PO SCH (05:49)
[2018-12-14] MEDS: OMEPRAZOLE 20 MG CAPSULE.DR PO SCH (05:49)
[2018-12-14 08:03] VITALS: BP 126/81
[2018-12-14] MEDS: TAMSULOSIN 0.4 MG CAP.ER.24H PO SCH (10:32)
[2018-12-14] MEDS: ASPIRIN 81 MG TABLET EC PO SCH (10:32)
[2018-12-14] MEDS ORDERED: CEFD300C37 PO (11:00)
[2018-12-14 12:12] VITALS: BP 117/61
[2018-12-14] MEDS ORDERED: CEFDINIR 300 MG CAPSULE PO SCH (21:00)
== END 2018-12-14 12:00 | disposition home or self-care (01) | DRG 698 ==
LOC: ED 16:28 → EDIP 18:39 → 3NE 20:05
PROVIDERS: ADMIT Family Medicine; ATTEND Family Medicine
PROC: 0T9B70Z Drainage of Bladder with Drainage Device, Via Natural or Artificial Opening (ICD-10-PCS; principal; 2018-12-07)
PROC: 0T9B80Z Drainage of Bladder with Drainage Device, Via Natural or Artificial Opening Endoscopic (ICD-10-PCS; 2018-12-10)
PROC: 0T7D8ZZ Dilation of Urethra, Via Natural or Artificial Opening Endoscopic (ICD-10-PCS; 2018-12-10)
DX: T83.518A Infection and inflammatory reaction due to other urinary catheter, initial encounter (principal); E41 Nutritional marasmus; Z68.1 Body mass index [BMI] 19.9 or less, adult; E44.1 Mild protein-calorie malnutrition; N30.91 Cystitis, unspecified with hematuria; E16.2 Hypoglycemia, unspecified; E78.5 Hyperlipidemia, unspecified; F03.90 Unspecified dementia, unspecified severity, without behavioral disturbance, psychotic disturbance, mood disturbance, and anxiety; I13.10 Hypertensive heart and chronic kidney disease without heart failure, with stage 1 through stage 4 chronic kidney disease, or unspecified chronic kidney disease; J44.9 Chronic obstructive pulmonary disease, unspecified; N18.3 Chronic kidney disease, stage 3 (moderate); N35.919 Unspecified urethral stricture, male, unspecified site; B96.4 Proteus (mirabilis) (morganii) as the cause of diseases classified elsewhere; N40.0 Benign prostatic hyperplasia without lower urinary tract symptoms; Y92.89 Other specified places as the place of occurrence of the external cause; Y84.6 Urinary catheterization as the cause of abnormal reaction of the patient, or of later complication, without mention of misadventure at the time of the procedure; Z59.0 Homelessness; Z86.19 Personal history of other infectious and parasitic diseases; Z86.73 Personal history of transient ischemic attack (TIA), and cerebral infarction without residual deficits; Z87.440 Personal history of urinary (tract) infections; Z91.14 Patient's other noncompliance with medication regimen; Z87.891 Personal history of nicotine dependence
CPT/HCPCS: 36415; 70450; 71045; 80048; 81001; 82040; 82962; 83605; 83735; 84484; 85014; 85018; 85025; 87077; 87086; 87186; 93005; 99285; G0378; J0690; J0696; J1644

== ENCOUNTER 2019-02-07 20:37 | Inpatient (IN) | payer MEDICARE, OTHER ==
[~2019-02-07] VITALS: Ht 180.3 cm; Wt 59.7 kg
[~2019-02-07 20:37] MED LIST changes: +ACID1TAB7 PO; +ALEN10TA6 PO; +AMLO2.5T5 PO; +CALC1TAB68 PO; +FINA5TAB4 PO; +LISI-167 PO
[2019-02-07] MEDS ORDERED: HYDROmorphone 2 MG/ML, 1ML ONE (20:56)
[2019-02-07] MEDS ORDERED: SODIUM CHLORIDE FLUSH 10ML SYR IVF ONE (21:00)
[2019-02-07] MEDS ORDERED: HYDROmorphone 1 MG/ML, 1ML INJ IVPush PRN (21:00)
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
--- NOTE | 2019-02-07 21:11 | NUR ---
PT MEDICATED PER EMAR FOR PAIN. PT TOLERTAED WELL.
--- NOTE | 2019-02-07 21:34 | NUR ---
pt in xray
--- NOTE | 2019-02-07 21:47 | NUR ---
pt back to room from xray now.
--- NOTE | 2019-02-07 22:21 | NUR ---
pt was not able to amb with walker at this time. edmd notified.
--- NOTE | 2019-02-07 23:12 | NUR ---
PT SLEEPING IN [facility]. RESPS EVEN AND UNLABORED. BP/SPO2 MONITORS IN PLACE. CALL LIGHT WITHIN REACH.
[2019-02-07 23:25] LABS: BASOPHILS # (AUTO) 0.08 x10^3/uL (0-0.1); BASOPHILS % (AUTO) 1 % (0-1); EOSINOPHILS # (AUTO) 0.14 x10^3/uL (0-0.4); EOSINOPHILS % (AUTO) 1 % (1-7); LYMPHOCYTES # (AUTO) 1.32 x10^3/uL (1-3.4); LYMPHOCYTES % (AUTO) 7 % (22-44); MD NO; MEAN CORPUSCULAR HEMOGLOBIN 29.1 pg (27.5-34.5); MEAN CORPUSCULAR HGB CONC 32.3 g/dL (33.2-36.2); MEAN CORPUSCULAR VOLUME 90.3 fL (81-97); MONOCYTES # (AUTO) 0.47 x10^3/uL (0.2-0.8); MONOCYTES % (AUTO) 3 % (2-9); NEUTROPHILS # (AUTO) 15.85 x10^3/uL (1.8-6.8); NEUTROPHILS % (AUTO) 89 % (42-75); PLATELET COUNT 593 x10^3/uL (130-400); RED BLOOD COUNT 3.64 x10^6/uL (4.38-5.82); RED CELL DISTRIBUTION WIDTH 15.5 % (9.4-14.8)
[2019-02-07 23:26] LABS: ALBUMIN 3.7 g/dL (3.4-5.0); ANION GAP 9 mmol/L (5-15); CALCIUM 9.2 mg/dL (8.5-10.1); CHLORIDE 107 mmol/L (98-107); CREATININE 2.17 mg/dL (0.7-1.3)
[2019-02-07] MEDS ORDERED: ONDANSETRON 2MG/ML, 2ML IVPush PRN (23:30)
[2019-02-07] MEDS ORDERED: MORPHINE SULFATE 4 MG/ML, 1ML IVPush PRN (23:30)
--- NOTE | 2019-02-07 23:49 | NUR ---
REPORT GIVEN TO KATHIE OVALLE. ALL QUESTIONS ANSWERED.
[2019-02-08] MEDS ORDERED: ONDANSETRON 2MG/ML, 2ML IVPush PRN
[2019-02-08] MEDS ORDERED: ACETAMINOPHEN 325 MG TABLET PO PRN
[2019-02-08] MEDS ORDERED: HYDROmorphone 2 MG/ML, 1ML IVPush PRN
[2019-02-08] MEDS ORDERED: LABETALOL 5MG/ML, 20ML IVPush PRN
[2019-02-08 01:00] VITALS: BP 115/71
[2019-02-08] MEDS: HEPARIN 5,000 UNITS/ML, 1ML SQ SCH ×3 (01:08→17:44)
[2019-02-08 04:57] LABS: BASOPHILS # (AUTO) 0.16 x10^3/uL (0-0.1); BASOPHILS % (AUTO) 1 % (0-1); EOSINOPHILS # (AUTO) 0.02 x10^3/uL (0-0.4); EOSINOPHILS % (AUTO) 0 % (1-7); LYMPHOCYTES # (AUTO) 2.38 x10^3/uL (1-3.4); LYMPHOCYTES % (AUTO) 16 % (22-44); MD NO; MEAN CORPUSCULAR HEMOGLOBIN 29.1 pg (27.5-34.5); MEAN CORPUSCULAR VOLUME 91.1 fL (81-97); MEAN PLATELET VOLUME 10.3 fL (7.4-10.4); MONOCYTES # (AUTO) 0.98 x10^3/uL (0.2-0.8); MONOCYTES % (AUTO) 7 % (2-9); NEUTROPHILS % (AUTO) 77 % (42-75); PLATELET COUNT 512 x10^3/uL (130-400); RED BLOOD COUNT 3.79 x10^6/uL (4.38-5.82); RED CELL DISTRIBUTION WIDTH 15.7 % (9.4-14.8)
[2019-02-08 05:09] LABS: ANION GAP 7 mmol/L (5-15); CALCIUM 9.1 mg/dL (8.5-10.1); CHLORIDE 110 mmol/L (98-107); CREATININE 1.83 mg/dL (0.7-1.3)
[2019-02-08] MEDS ORDERED: OMEPRAZOLE 20 MG CAPSULE.DR PO SCH (06:00)
[2019-02-08] MEDS: CARVEDILOL 6.25 MG TABLET PO SCH ×2 (06:17→17:43)
[2019-02-08] MEDS: ALENDRONATE 10 MG TABLET PO SCH (06:38)
[2019-02-08 08:04] VITALS: BP 97/60
[2019-02-08] MEDS: SODIUM CHLORIDE 0.9% 1,000 ML IV SCH ×2 (08:30→12:25)
[2019-02-08] MEDS: FINASTERIDE 5 MG TABLET PO SCH (09:11)
[2019-02-08] MEDS: CALCIUM/VITAMIN D3 250-125 TABLET PO SCH ×2 (09:11→21:16)
[2019-02-08] MEDS: LACTOBACILLUS CHEW TABLET PO SCH ×3 (09:11→21:16)
[2019-02-08] MEDS: SENNA/DOCUSATE TABLET PO SCH (09:11)
[2019-02-08] MEDS: TAMSULOSIN 0.4 MG CAP.ER.24H PO SCH (09:11)
[2019-02-08] MEDS: ASPIRIN 81 MG TABLET EC PO SCH (09:11)
[2019-02-08 11:57] LABS: MICROSCOPIC INDICATED
[2019-02-08 11:58] LABS: CULTURE INDICATED? YES
[2019-02-08 14:55] VITALS: BP 117/73
[2019-02-08 17:39] VITALS: BP 111/56
[2019-02-08 19:25] VITALS: BP 100/59
[2019-02-08] MEDS: ATORVASTATIN 40 MG TABLET PO SCH (21:16)
[2019-02-08] MEDS: HYDROcodone/APAP 5/325 TABLET PO PRN (21:16)
[2019-02-09 01:30] VITALS: BP 106/57
[2019-02-09] MEDS: HEPARIN 5,000 UNITS/ML, 1ML SQ SCH ×3 (01:34→17:25)
[2019-02-09] MEDS: HYDROcodone/APAP 5/325 TABLET PO PRN ×3 (01:34→17:25)
[2019-02-09] MEDS: SODIUM CHLORIDE 0.9% 1,000 ML IV SCH ×2 (01:35)
[2019-02-09 05:16] LABS: CALCIUM 8.2 mg/dL (8.5-10.1); CHLORIDE 111 mmol/L (98-107)
[2019-02-09 05:20] LABS: ANION GAP 7 mmol/L (5-15); CREATININE 1.87 mg/dL (0.7-1.3)
[2019-02-09 05:27] LABS: BASOPHILS # (AUTO) 0.09 x10^3/uL (0-0.1); BASOPHILS % (AUTO) 1 % (0-1); EOSINOPHILS # (AUTO) 0.23 x10^3/uL (0-0.4); EOSINOPHILS % (AUTO) 2 % (1-7); LYMPHOCYTES % (AUTO) 25 % (22-44); MD NO; MEAN CORPUSCULAR HEMOGLOBIN 29.6 pg (27.5-34.5); MEAN CORPUSCULAR HGB CONC 32.5 g/dL (33.2-36.2); MEAN PLATELET VOLUME 10.2 fL (7.4-10.4); MONOCYTES % (AUTO) 9 % (2-9); NEUTROPHILS # (AUTO) 7.28 x10^3/uL (1.8-6.8); NEUTROPHILS % (AUTO) 64 % (42-75); PLATELET COUNT 425 x10^3/uL (130-400); RED BLOOD COUNT 3.32 x10^6/uL (4.38-5.82); RED CELL DISTRIBUTION WIDTH 15.9 % (9.4-14.8)
[2019-02-09 05:30] VITALS: BP 102/51
[2019-02-09] MEDS: CARVEDILOL 6.25 MG TABLET PO SCH ×2 (05:33→17:25)
[2019-02-09] MEDS: ALENDRONATE 10 MG TABLET PO SCH (05:33)
[2019-02-09 07:29] VITALS: BP 104/62
[2019-02-09] MEDS: ASPIRIN 81 MG TABLET EC PO SCH (08:26)
[2019-02-09] MEDS: LACTOBACILLUS CHEW TABLET PO SCH ×3 (08:26→20:19)
[2019-02-09] MEDS: CALCIUM/VITAMIN D3 250-125 TABLET PO SCH ×2 (08:26→20:20)
[2019-02-09] MEDS: SENNA/DOCUSATE TABLET PO SCH (08:26)
[2019-02-09] MEDS: TAMSULOSIN 0.4 MG CAP.ER.24H PO SCH (08:26)
[2019-02-09] MEDS: FINASTERIDE 5 MG TABLET PO SCH (08:26)
[2019-02-09] MEDS: [UNRECOGNIZED DRUG - REMARK] MC SCH ×2 (11:46→19:00)
[2019-02-09 13:35] VITALS: BP 119/68
[2019-02-09 19:43] VITALS: BP 153/74
[2019-02-09] MEDS: ATORVASTATIN 40 MG TABLET PO SCH (20:19)
[2019-02-10] MEDS: HEPARIN 5,000 UNITS/ML, 1ML SQ SCH ×3 (01:18→17:44)
[2019-02-10] MEDS: [UNRECOGNIZED DRUG - REMARK] MC SCH ×3 (01:19→19:30)
[2019-02-10 02:08] VITALS: BP 116/62
[2019-02-10 06:16] LABS: BASOPHILS # (AUTO) 0.09 x10^3/uL (0-0.1); BASOPHILS % (AUTO) 1 % (0-1); EOSINOPHILS # (AUTO) 0.27 x10^3/uL (0-0.4); EOSINOPHILS % (AUTO) 2 % (1-7); LYMPHOCYTES # (AUTO) 2.15 x10^3/uL (1-3.4); LYMPHOCYTES % (AUTO) 18 % (22-44); MD NO; MEAN CORPUSCULAR HEMOGLOBIN 29.3 pg (27.5-34.5); MEAN CORPUSCULAR HGB CONC 32.2 g/dL (33.2-36.2); MEAN PLATELET VOLUME 10.9 fL (7.4-10.4); MONOCYTES # (AUTO) 0.78 x10^3/uL (0.2-0.8); MONOCYTES % (AUTO) 6 % (2-9); NEUTROPHILS # (AUTO) 8.99 x10^3/uL (1.8-6.8); NEUTROPHILS % (AUTO) 73 % (42-75); PLATELET COUNT 446 x10^3/uL (130-400); RED BLOOD COUNT 3.64 x10^6/uL (4.38-5.82); RED CELL DISTRIBUTION WIDTH 15.6 % (9.4-14.8)
[2019-02-10] MEDS: ALENDRONATE 10 MG TABLET PO SCH (06:22)
[2019-02-10] MEDS: CARVEDILOL 6.25 MG TABLET PO SCH ×2 (06:22→17:44)
[2019-02-10 06:56] LABS: CHLORIDE 110 mmol/L (98-107)
[2019-02-10 07:01] LABS: ANION GAP 8 mmol/L (5-15); CALCIUM 8.4 mg/dL (8.5-10.1); CREATININE 1.62 mg/dL (0.7-1.3)
[2019-02-10 07:51] VITALS: BP 147/57
[2019-02-10] MEDS: FINASTERIDE 5 MG TABLET PO SCH (09:38)
[2019-02-10] MEDS: ASPIRIN 81 MG TABLET EC PO SCH (09:38)
[2019-02-10] MEDS: SENNA/DOCUSATE TABLET PO SCH (09:38)
[2019-02-10] MEDS: TAMSULOSIN 0.4 MG CAP.ER.24H PO SCH (09:38)
[2019-02-10] MEDS: LACTOBACILLUS CHEW TABLET PO SCH ×3 (09:38→20:21)
[2019-02-10] MEDS: CALCIUM/VITAMIN D3 250-125 TABLET PO SCH ×2 (09:38→20:22)
[2019-02-10 14:19] VITALS: BP 127/65
[2019-02-10 17:42] VITALS: BP 129/67
[2019-02-10 19:50] VITALS: BP 123/68
[2019-02-10] MEDS: ATORVASTATIN 40 MG TABLET PO SCH (20:22)
[2019-02-11] MEDS: HEPARIN 5,000 UNITS/ML, 1ML SQ SCH ×3 (01:24→17:09)
[2019-02-11 02:18] VITALS: BP 125/73
[2019-02-11] MEDS: [UNRECOGNIZED DRUG - REMARK] MC SCH ×3 (02:51→19:19)
[2019-02-11] MEDS: ALENDRONATE 10 MG TABLET PO SCH (05:42)
[2019-02-11] MEDS: CARVEDILOL 6.25 MG TABLET PO SCH ×2 (05:42→17:09)
[2019-02-11 06:43] VITALS: BP 111/69
[2019-02-11] MEDS: TAMSULOSIN 0.4 MG CAP.ER.24H PO SCH (09:12)
[2019-02-11] MEDS: SENNA/DOCUSATE TABLET PO SCH (09:12)
[2019-02-11] MEDS: LACTOBACILLUS CHEW TABLET PO SCH ×3 (09:12→20:09)
[2019-02-11] MEDS: CALCIUM/VITAMIN D3 250-125 TABLET PO SCH ×2 (09:13→20:09)
[2019-02-11] MEDS: LINEZOLID 600 MG TABLET PO SCH ×2 (09:13→20:09)
[2019-02-11] MEDS: ASPIRIN 81 MG TABLET EC PO SCH (09:13)
[2019-02-11] MEDS: FINASTERIDE 5 MG TABLET PO SCH (09:13)
[2019-02-11 12:21] VITALS: BP 156/64
[2019-02-11] MEDS: ATORVASTATIN 40 MG TABLET PO SCH (20:09)
[2019-02-11 20:18] VITALS: BP 115/66
[2019-02-12 01:32] VITALS: BP 117/70
[2019-02-12] MEDS: HEPARIN 5,000 UNITS/ML, 1ML SQ SCH ×3 (01:41→16:37)
[2019-02-12] MEDS: [UNRECOGNIZED DRUG - REMARK] MC SCH ×3 (03:30→19:30)
[2019-02-12 05:40] LABS: CHLORIDE 110 mmol/L (98-107)
[2019-02-12 05:42] LABS: BASOPHILS # (AUTO) 0.06 x10^3/uL (0-0.1); BASOPHILS % (AUTO) 1 % (0-1); EOSINOPHILS # (AUTO) 0.24 x10^3/uL (0-0.4); EOSINOPHILS % (AUTO) 3 % (1-7); LYMPHOCYTES # (AUTO) 1.99 x10^3/uL (1-3.4); LYMPHOCYTES % (AUTO) 21 % (22-44); MD NO; MEAN CORPUSCULAR HEMOGLOBIN 28.9 pg (27.5-34.5); MEAN CORPUSCULAR VOLUME 90.1 fL (81-97); MEAN PLATELET VOLUME 11.2 fL (7.4-10.4); MONOCYTES # (AUTO) 0.68 x10^3/uL (0.2-0.8); MONOCYTES % (AUTO) 7 % (2-9); NEUTROPHILS # (AUTO) 6.35 x10^3/uL (1.8-6.8); NEUTROPHILS % (AUTO) 68 % (42-75); PLATELET COUNT 408 x10^3/uL (130-400); RED BLOOD COUNT 3.98 x10^6/uL (4.38-5.82); RED CELL DISTRIBUTION WIDTH 15.5 % (9.4-14.8)
[2019-02-12] MEDS: ALENDRONATE 10 MG TABLET PO SCH (05:42)
[2019-02-12] MEDS: CARVEDILOL 6.25 MG TABLET PO SCH ×2 (05:42→17:49)
[2019-02-12 05:59] LABS: ANION GAP 8 mmol/L (5-15); CALCIUM 8.6 mg/dL (8.5-10.1)
[2019-02-12] MEDS: CALCIUM/VITAMIN D3 250-125 TABLET PO SCH ×2 (08:54→22:01)
[2019-02-12] MEDS: SENNA/DOCUSATE TABLET PO SCH (08:54)
[2019-02-12] MEDS: LACTOBACILLUS CHEW TABLET PO SCH ×3 (08:54→22:00)
[2019-02-12] MEDS: LINEZOLID 600 MG TABLET PO SCH ×2 (08:54→22:00)
[2019-02-12] MEDS: TAMSULOSIN 0.4 MG CAP.ER.24H PO SCH (08:54)
[2019-02-12] MEDS: FINASTERIDE 5 MG TABLET PO SCH (09:00)
[2019-02-12] MEDS: ASPIRIN 81 MG TABLET EC PO SCH (09:01)
[2019-02-12 09:06] VITALS: BP 158/75
[2019-02-12] MEDS: HYDROcodone/APAP 5/325 TABLET PO PRN ×2 (09:23→22:12)
[2019-02-12 14:51] VITALS: BP 136/80
[2019-02-12 17:45] VITALS: BP 125/60
[2019-02-12 19:50] VITALS: BP 130/79
[2019-02-12] MEDS: ATORVASTATIN 40 MG TABLET PO SCH (22:00)
[2019-02-13 01:27] VITALS: BP 121/68
[2019-02-13] MEDS: HEPARIN 5,000 UNITS/ML, 1ML SQ SCH ×3 (02:27→17:14)
[2019-02-13] MEDS: [UNRECOGNIZED DRUG - REMARK] MC SCH ×2 (02:27→19:00)
[2019-02-13] MEDS: CARVEDILOL 6.25 MG TABLET PO SCH ×2 (06:00→17:14)
[2019-02-13 06:33] VITALS: BP 126/69
[2019-02-13] MEDS: ALENDRONATE 10 MG TABLET PO SCH (06:35)
[2019-02-13] MEDS: HYDROcodone/APAP 5/325 TABLET PO PRN (06:35)
[2019-02-13] MEDS: FINASTERIDE 5 MG TABLET PO SCH (09:00)
[2019-02-13] MEDS: ASPIRIN 81 MG TABLET EC PO SCH (09:10)
[2019-02-13] MEDS: TAMSULOSIN 0.4 MG CAP.ER.24H PO SCH (09:10)
[2019-02-13] MEDS: CALCIUM/VITAMIN D3 250-125 TABLET PO SCH ×2 (09:10→21:54)
[2019-02-13] MEDS: SENNA/DOCUSATE TABLET PO SCH (09:10)
[2019-02-13] MEDS: LACTOBACILLUS CHEW TABLET PO SCH ×3 (09:10→21:54)
[2019-02-13] MEDS: LINEZOLID 600 MG TABLET PO SCH ×2 (09:11→21:54)
[2019-02-13 14:19] VITALS: BP 116/69
[2019-02-13 20:52] VITALS: BP 113/71
[2019-02-13] MEDS: ATORVASTATIN 40 MG TABLET PO SCH (21:54)
[2019-02-14] MEDS: HEPARIN 5,000 UNITS/ML, 1ML SQ SCH ×3 (01:00→17:13)
[2019-02-14] MEDS: [UNRECOGNIZED DRUG - REMARK] MC SCH ×3 (01:07→17:15)
[2019-02-14 02:56] VITALS: BP 104/66
[2019-02-14 05:37] VITALS: BP 116/66
[2019-02-14] MEDS: CARVEDILOL 6.25 MG TABLET PO SCH ×2 (05:44→17:14)
[2019-02-14] MEDS: ALENDRONATE 10 MG TABLET PO SCH (05:44)
--- NOTE | 2019-02-14 09:00 | NUR ---
Nursing Activity Sheet 1. Up in chair for all meals 2. Ambulate with FWW in zimmer with 1 person assist 3. Seated B LE strengthening exercises per green exercise sheet: hip adductor squeeze with pillow, Hip abduction with resistance band, knee extension, marching, ankle dorsiflexion/plantarflexion. Addendum: 02/14/19 at 1247 by SABIHA CHEN PTA Amended: Links added.
[2019-02-14] MEDS: ASPIRIN 81 MG TABLET EC PO SCH (09:04)
[2019-02-14] MEDS: CALCIUM/VITAMIN D3 250-125 TABLET PO SCH ×2 (09:04→19:29)
[2019-02-14] MEDS: TAMSULOSIN 0.4 MG CAP.ER.24H PO SCH (09:04)
[2019-02-14] MEDS: LACTOBACILLUS CHEW TABLET PO SCH ×3 (09:05→19:29)
[2019-02-14] MEDS: LINEZOLID 600 MG TABLET PO SCH ×2 (09:05→19:29)
[2019-02-14] MEDS: SENNA/DOCUSATE TABLET PO SCH (09:05)
[2019-02-14] MEDS: FINASTERIDE 5 MG TABLET PO SCH (09:05)
[2019-02-14 09:21] VITALS: BP 125/79
[2019-02-14 14:29] VITALS: BP 130/75
[2019-02-14 17:12] VITALS: BP 128/79
[2019-02-14] MEDS: ATORVASTATIN 40 MG TABLET PO SCH (19:29)
[2019-02-14 20:07] VITALS: BP 110/69
[2019-02-15] VITALS (7 sets, daily range): BP systolic 109–165; BP diastolic 60–98
[2019-02-15] MEDS: HEPARIN 5,000 UNITS/ML, 1ML SQ SCH ×3 (02:31→17:11)
[2019-02-15] MEDS: [UNRECOGNIZED DRUG - REMARK] MC SCH ×3 (03:09→17:14)
[2019-02-15] MEDS: CARVEDILOL 6.25 MG TABLET PO SCH ×2 (05:53→17:11)
[2019-02-15] MEDS: ALENDRONATE 10 MG TABLET PO SCH (05:53)
[2019-02-15] MEDS: CALCIUM/VITAMIN D3 250-125 TABLET PO SCH ×2 (09:47→21:28)
[2019-02-15] MEDS: LINEZOLID 600 MG TABLET PO SCH ×2 (09:47→21:28)
[2019-02-15] MEDS: ASPIRIN 81 MG TABLET EC PO SCH (09:47)
[2019-02-15] MEDS: LACTOBACILLUS CHEW TABLET PO SCH ×3 (09:47→21:28)
[2019-02-15] MEDS: TAMSULOSIN 0.4 MG CAP.ER.24H PO SCH (09:47)
[2019-02-15] MEDS: SENNA/DOCUSATE TABLET PO SCH (09:47)
[2019-02-15] MEDS: FINASTERIDE 5 MG TABLET PO SCH (09:48)
[2019-02-15] MEDS: ATORVASTATIN 40 MG TABLET PO SCH (21:28)
[2019-02-16] MEDS: [UNRECOGNIZED DRUG - REMARK] MC SCH (01:02)
[2019-02-16] MEDS: HEPARIN 5,000 UNITS/ML, 1ML SQ SCH ×3 (01:02→16:50)
[2019-02-16 02:12] VITALS: BP 123/77
[2019-02-16] MEDS: CARVEDILOL 6.25 MG TABLET PO SCH ×2 (06:16→16:49)
[2019-02-16] MEDS: ALENDRONATE 10 MG TABLET PO SCH (06:16)
[2019-02-16 07:20] VITALS: BP 122/68
[2019-02-16] MEDS: ASPIRIN 81 MG TABLET EC PO SCH (09:22)
[2019-02-16] MEDS: LINEZOLID 600 MG TABLET PO SCH (09:22)
[2019-02-16] MEDS: LACTOBACILLUS CHEW TABLET PO SCH ×3 (09:22→20:09)
[2019-02-16] MEDS: FINASTERIDE 5 MG TABLET PO SCH (09:23)
[2019-02-16] MEDS: CALCIUM/VITAMIN D3 250-125 TABLET PO SCH ×2 (09:23→20:09)
[2019-02-16] MEDS: SENNA/DOCUSATE TABLET PO SCH (09:25)
[2019-02-16] MEDS: TAMSULOSIN 0.4 MG CAP.ER.24H PO SCH (09:25)
[2019-02-16 12:20] VITALS: BP 115/73
[2019-02-16 16:48] VITALS: BP 116/69
[2019-02-16] MEDS: ATORVASTATIN 40 MG TABLET PO SCH (20:09)
[2019-02-16 21:26] VITALS: BP 118/75
[2019-02-17] MEDS: HEPARIN 5,000 UNITS/ML, 1ML SQ SCH ×3 (00:49→17:11)
[2019-02-17 01:39] VITALS: BP 116/74
[2019-02-17 06:11] VITALS: BP 111/65
[2019-02-17] MEDS: ALENDRONATE 10 MG TABLET PO SCH (06:12)
[2019-02-17] MEDS: CARVEDILOL 6.25 MG TABLET PO SCH ×2 (06:12→17:12)
[2019-02-17 06:50] VITALS: BP 105/61
[2019-02-17] MEDS: TAMSULOSIN 0.4 MG CAP.ER.24H PO SCH (08:48)
[2019-02-17] MEDS: ASPIRIN 81 MG TABLET EC PO SCH (08:48)
[2019-02-17] MEDS: LACTOBACILLUS CHEW TABLET PO SCH ×3 (08:48→20:39)
[2019-02-17] MEDS: SENNA/DOCUSATE TABLET PO SCH (08:48)
[2019-02-17] MEDS: FINASTERIDE 5 MG TABLET PO SCH (08:48)
[2019-02-17] MEDS: CALCIUM/VITAMIN D3 250-125 TABLET PO SCH ×2 (08:48→20:39)
[2019-02-17 13:43] VITALS: BP 112/67
[2019-02-17 17:13] VITALS: BP 147/80
[2019-02-17 19:43] VITALS: BP 134/74
[2019-02-17] MEDS: ATORVASTATIN 40 MG TABLET PO SCH (20:39)
[2019-02-18 02:01] VITALS: BP 105/59
[2019-02-18] MEDS: HEPARIN 5,000 UNITS/ML, 1ML SQ SCH ×3 (02:06→17:25)
[2019-02-18] MEDS: CARVEDILOL 6.25 MG TABLET PO SCH ×2 (06:08→17:25)
[2019-02-18] MEDS: ALENDRONATE 10 MG TABLET PO SCH (06:08)
[2019-02-18 06:09] VITALS: BP 102/65
[2019-02-18 07:02] VITALS: BP 123/75
[2019-02-18] MEDS: CALCIUM/VITAMIN D3 250-125 TABLET PO SCH ×2 (09:53→20:43)
[2019-02-18] MEDS: TAMSULOSIN 0.4 MG CAP.ER.24H PO SCH (09:53)
[2019-02-18] MEDS: FINASTERIDE 5 MG TABLET PO SCH (09:53)
[2019-02-18] MEDS: ASPIRIN 81 MG TABLET EC PO SCH (09:53)
[2019-02-18] MEDS: SENNA/DOCUSATE TABLET PO SCH (09:54)
[2019-02-18] MEDS: LACTOBACILLUS CHEW TABLET PO SCH ×3 (09:54→20:42)
[2019-02-18 13:08] VITALS: BP 137/75
[2019-02-18 17:24] VITALS: BP 115/68
[2019-02-18 19:40] VITALS: BP 114/65
[2019-02-18] MEDS: ATORVASTATIN 40 MG TABLET PO SCH (20:42)
[2019-02-19] MEDS: HEPARIN 5,000 UNITS/ML, 1ML SQ SCH ×3 (01:29→17:18)
[2019-02-19 01:40] VITALS: BP 103/53
[2019-02-19] MEDS: ALENDRONATE 10 MG TABLET PO SCH (05:42)
[2019-02-19 05:45] VITALS: BP 102/64
[2019-02-19] MEDS: CARVEDILOL 6.25 MG TABLET PO SCH ×2 (05:45→17:18)
[2019-02-19 06:49] VITALS: BP 115/68
[2019-02-19] MEDS: ASPIRIN 81 MG TABLET EC PO SCH (09:11)
[2019-02-19] MEDS: CALCIUM/VITAMIN D3 250-125 TABLET PO SCH ×2 (09:11→22:39)
[2019-02-19] MEDS: SENNA/DOCUSATE TABLET PO SCH (09:11)
[2019-02-19] MEDS: FINASTERIDE 5 MG TABLET PO SCH (09:11)
[2019-02-19] MEDS: TAMSULOSIN 0.4 MG CAP.ER.24H PO SCH (09:11)
[2019-02-19] MEDS: LACTOBACILLUS CHEW TABLET PO SCH ×3 (09:11→22:39)
[2019-02-19 12:24] VITALS: BP 117/76
[2019-02-19] MEDS: POLYETHYLENE GLYCOL 17 GM PACKET PO PRN (17:18)
[2019-02-19 18:31] VITALS: BP 113/69
[2019-02-19] MEDS: ATORVASTATIN 40 MG TABLET PO SCH (22:39)
[2019-02-20 01:35] VITALS: BP 117/72
[2019-02-20] MEDS: HEPARIN 5,000 UNITS/ML, 1ML SQ SCH ×3 (02:58→20:14)
[2019-02-20] MEDS: ALENDRONATE 10 MG TABLET PO SCH (06:26)
[2019-02-20] MEDS: CARVEDILOL 6.25 MG TABLET PO SCH ×2 (06:26→17:44)
[2019-02-20 07:07] VITALS: BP 116/75
[2019-02-20] MEDS: LACTOBACILLUS CHEW TABLET PO SCH ×3 (08:21→20:14)
[2019-02-20] MEDS: TAMSULOSIN 0.4 MG CAP.ER.24H PO SCH (08:22)
[2019-02-20] MEDS: FINASTERIDE 5 MG TABLET PO SCH (08:22)
[2019-02-20] MEDS: CALCIUM/VITAMIN D3 250-125 TABLET PO SCH ×2 (08:22→20:14)
[2019-02-20] MEDS: SENNA/DOCUSATE TABLET PO SCH (08:22)
[2019-02-20] MEDS: ASPIRIN 81 MG TABLET EC PO SCH (08:22)
[2019-02-20 13:28] VITALS: BP 126/72
[2019-02-20] MEDS: ATORVASTATIN 40 MG TABLET PO SCH (20:14)
[2019-02-20 20:24] VITALS: BP 124/66
[2019-02-21 01:31] VITALS: BP 114/56
[2019-02-21] MEDS: HEPARIN 5,000 UNITS/ML, 1ML SQ SCH ×3 (04:42→20:19)
[2019-02-21] MEDS: ALENDRONATE 10 MG TABLET PO SCH (06:13)
[2019-02-21] MEDS: CARVEDILOL 6.25 MG TABLET PO SCH ×2 (06:13→17:33)
[2019-02-21 07:59] VITALS: BP 116/59
[2019-02-21] MEDS: SENNA/DOCUSATE TABLET PO SCH (08:40)
[2019-02-21] MEDS: LACTOBACILLUS CHEW TABLET PO SCH ×3 (08:40→20:19)
[2019-02-21] MEDS: TAMSULOSIN 0.4 MG CAP.ER.24H PO SCH (08:40)
[2019-02-21] MEDS: ASPIRIN 81 MG TABLET EC PO SCH (08:40)
[2019-02-21] MEDS: POLYETHYLENE GLYCOL 17 GM PACKET PO PRN (08:40)
[2019-02-21] MEDS: CALCIUM/VITAMIN D3 250-125 TABLET PO SCH ×2 (08:40→20:19)
[2019-02-21] MEDS: FINASTERIDE 5 MG TABLET PO SCH (08:40)
[2019-02-21 13:49] VITALS: BP 111/61
[2019-02-21 19:40] VITALS: BP 120/70
[2019-02-21] MEDS: ATORVASTATIN 40 MG TABLET PO SCH (20:19)
[2019-02-22 02:58] VITALS: BP 115/67
[2019-02-22] MEDS: HEPARIN 5,000 UNITS/ML, 1ML SQ SCH ×3 (04:09→20:44)
[2019-02-22 06:14] VITALS: BP 110/70
[2019-02-22] MEDS: ALENDRONATE 10 MG TABLET PO SCH (06:14)
[2019-02-22] MEDS: CARVEDILOL 6.25 MG TABLET PO SCH ×2 (06:14→17:07)
[2019-02-22] MEDS: ASPIRIN 81 MG TABLET EC PO SCH (08:34)
[2019-02-22] MEDS: LACTOBACILLUS CHEW TABLET PO SCH ×3 (08:34→20:44)
[2019-02-22] MEDS: FINASTERIDE 5 MG TABLET PO SCH (08:34)
[2019-02-22] MEDS: CALCIUM/VITAMIN D3 250-125 TABLET PO SCH ×2 (08:34→20:44)
[2019-02-22] MEDS: TAMSULOSIN 0.4 MG CAP.ER.24H PO SCH (08:34)
[2019-02-22] MEDS: SENNA/DOCUSATE TABLET PO SCH (08:35)
[2019-02-22 14:10] VITALS: BP 101/61
[2019-02-22 18:42] VITALS: BP 135/83
[2019-02-22] MEDS: ATORVASTATIN 40 MG TABLET PO SCH (20:44)
[2019-02-23 02:38] VITALS: BP 104/56
[2019-02-23] MEDS: HEPARIN 5,000 UNITS/ML, 1ML SQ SCH ×3 (05:14→20:09)
[2019-02-23] MEDS: ALENDRONATE 10 MG TABLET PO SCH (05:15)
[2019-02-23] MEDS: CARVEDILOL 6.25 MG TABLET PO SCH ×2 (05:15→17:14)
[2019-02-23 07:12] VITALS: BP 100/54
[2019-02-23] MEDS: CALCIUM/VITAMIN D3 250-125 TABLET PO SCH ×2 (08:47→20:09)
[2019-02-23] MEDS: FINASTERIDE 5 MG TABLET PO SCH (08:47)
[2019-02-23] MEDS: ASPIRIN 81 MG TABLET EC PO SCH (08:47)
[2019-02-23] MEDS: LACTOBACILLUS CHEW TABLET PO SCH ×3 (08:47→20:09)
[2019-02-23] MEDS: TAMSULOSIN 0.4 MG CAP.ER.24H PO SCH (08:47)
[2019-02-23] MEDS: SENNA/DOCUSATE TABLET PO SCH (08:47)
[2019-02-23 13:45] VITALS: BP 115/66
[2019-02-23] MEDS: ATORVASTATIN 40 MG TABLET PO SCH (20:09)
[2019-02-23 20:47] VITALS: BP 109/65
[2019-02-24 02:42] VITALS: BP 103/62
[2019-02-24] MEDS: HEPARIN 5,000 UNITS/ML, 1ML SQ SCH ×3 (04:34→19:34)
[2019-02-24 05:59] VITALS: BP 114/69
[2019-02-24] MEDS: ALENDRONATE 10 MG TABLET PO SCH (06:01)
[2019-02-24] MEDS: CARVEDILOL 6.25 MG TABLET PO SCH ×2 (06:01→17:11)
[2019-02-24 09:23] VITALS: BP 100/59
[2019-02-24] MEDS: ASPIRIN 81 MG TABLET EC PO SCH (09:27)
[2019-02-24] MEDS: LACTOBACILLUS CHEW TABLET PO SCH ×3 (09:27→19:34)
[2019-02-24] MEDS: FINASTERIDE 5 MG TABLET PO SCH (09:27)
[2019-02-24] MEDS: TAMSULOSIN 0.4 MG CAP.ER.24H PO SCH (09:28)
[2019-02-24] MEDS: SENNA/DOCUSATE TABLET PO SCH (09:28)
[2019-02-24] MEDS: CALCIUM/VITAMIN D3 250-125 TABLET PO SCH ×2 (09:28→19:34)
[2019-02-24 12:40] VITALS: BP 118/63
[2019-02-24] MEDS: ATORVASTATIN 40 MG TABLET PO SCH (19:34)
[2019-02-24] MEDS: POLYETHYLENE GLYCOL 17 GM PACKET PO PRN (19:34)
[2019-02-24 22:01] VITALS: BP 112/64
[2019-02-25 03:22] VITALS: BP 104/64
[2019-02-25] MEDS: HEPARIN 5,000 UNITS/ML, 1ML SQ SCH ×2 (04:07→12:13)
[2019-02-25 06:11] VITALS: BP 109/81
[2019-02-25] MEDS: CARVEDILOL 6.25 MG TABLET PO SCH ×2 (06:12→18:07)
[2019-02-25] MEDS: ALENDRONATE 10 MG TABLET PO SCH (06:12)
[2019-02-25 06:54] VITALS: BP 110/62
[2019-02-25] MEDS: LACTOBACILLUS CHEW TABLET PO SCH ×2 (09:50→18:07)
[2019-02-25] MEDS: CALCIUM/VITAMIN D3 250-125 TABLET PO SCH (09:50)
[2019-02-25] MEDS: ASPIRIN 81 MG TABLET EC PO SCH (09:50)
[2019-02-25] MEDS: FINASTERIDE 5 MG TABLET PO SCH (09:50)
[2019-02-25] MEDS: SENNA/DOCUSATE TABLET PO SCH (09:50)
[2019-02-25] MEDS: TAMSULOSIN 0.4 MG CAP.ER.24H PO SCH (09:51)
[2019-02-25 14:50] VITALS: BP 89/47
[2019-02-25] MEDS ORDERED: CALC1TAB68 PO (15:54)
[2019-02-25] MEDS ORDERED: CARV6.2512 PO (15:54)
[2019-02-25] MEDS ORDERED: ATOR40TA78 PO (15:54)
[2019-02-25] MEDS ORDERED: ASPI-515 PO/NG (15:54)
[2019-02-25] MEDS ORDERED: FINA5TAB4 PO (15:54)
[2019-02-25] MEDS ORDERED: TAMS-11 PO (15:54)
[2019-02-25] MEDS ORDERED: ALEN10TA6 PO (15:54)
[2019-02-25] MEDS ORDERED: OMEP-110 PO (15:54)
[2019-02-25] MEDS ORDERED: ACID1TAB7 PO (15:54)
[2019-02-25 18:03] VITALS: BP 119/71
== END 2019-02-25 20:00 | disposition home or self-care (01) | DRG 947 ==
LOC: ED 20:39 → EDIP 23:29 → 4NOR 02-08 00:20
PROVIDERS: ADMIT Family Medicine; ATTEND Family Medicine
PROC: 0T9B70Z Drainage of Bladder with Drainage Device, Via Natural or Artificial Opening (ICD-10-PCS; principal; 2019-02-08)
DX: G89.11 Acute pain due to trauma (principal); S72.142A Displaced intertrochanteric fracture of left femur, initial encounter for closed fracture; N17.0 Acute kidney failure with tubular necrosis; N39.0 Urinary tract infection, site not specified; Y99.8 Other external cause status; B95.2 Enterococcus as the cause of diseases classified elsewhere; E78.5 Hyperlipidemia, unspecified; N40.0 Benign prostatic hyperplasia without lower urinary tract symptoms; R29.6 Repeated falls; W18.30XA Fall on same level, unspecified, initial encounter; Y93.01 Activity, walking, marching and hiking; F03.90 Unspecified dementia, unspecified severity, without behavioral disturbance, psychotic disturbance, mood disturbance, and anxiety; N18.3 Chronic kidney disease, stage 3 (moderate); I12.9 Hypertensive chronic kidney disease with stage 1 through stage 4 chronic kidney disease, or unspecified chronic kidney disease; J44.9 Chronic obstructive pulmonary disease, unspecified; K59.00 Constipation, unspecified; Z87.440 Personal history of urinary (tract) infections; Z72.0 Tobacco use; Z86.73 Personal history of transient ischemic attack (TIA), and cerebral infarction without residual deficits; Z91.19 Patient's noncompliance with other medical treatment and regimen; Y92.410 Unspecified street and highway as the place of occurrence of the external cause; Z79.899 Other long term (current) drug therapy; Z71.6 Tobacco abuse counseling
CPT/HCPCS: 36415; 80048; 81001; 82040; 85025; 87077; 87086; 87106; 87186; 99285; G0378; J1170; J1644; J7030

== ENCOUNTER 2019-07-20 08:51 | Emergency (ER) | payer MEDICARE, OTHER ==
[~2019-07-20] VITALS: Ht 177.8 cm; Wt 57.0 kg
[~2019-07-20 08:51] MED LIST changes: -ALEN10TA6 PO; +ALEN10TA7 PO
[2019-07-20 09:38] LABS: BASOPHILS # (AUTO) 0.11 x10^3/uL (0-0.1); BASOPHILS % (AUTO) 1 % (0-1); EOSINOPHILS # (AUTO) 0.09 x10^3/uL (0-0.4); EOSINOPHILS % (AUTO) 1 % (1-7); LYMPHOCYTES % (AUTO) 12 % (22-44); MD NO; MEAN CORPUSCULAR HEMOGLOBIN 29.1 pg (27.5-34.5); MEAN CORPUSCULAR HGB CONC 32.2 g/dL (33.2-36.2); MEAN CORPUSCULAR VOLUME 90.3 fL (81-97); MONOCYTES % (AUTO) 6 % (2-9); NEUTROPHILS # (AUTO) 6.45 x10^3/uL (1.8-6.8); NEUTROPHILS % (AUTO) 79 % (42-75); PLATELET COUNT 266 x10^3/uL (130-400); RED BLOOD COUNT 6.13 x10^6/uL (4.38-5.82); RED CELL DISTRIBUTION WIDTH 15.7 % (9.4-14.8)
[2019-07-20 09:47] LABS: ALBUMIN 4.3 g/dL (3.4-5.0); ANION GAP 11 mmol/L (5-15); CALCIUM 8.8 mg/dL (8.5-10.1); CHLORIDE 104 mmol/L (98-107); CREATININE 2.32 mg/dL (0.7-1.3)
--- NOTE | 2019-07-20 09:54 | NUR ---
Pt attempting to urinate s/p crabtree catheter removal. UA cup and urinal provided at bedside.
[2019-07-20 11:00] LABS: CULTURE INDICATED? YES; MICROSCOPIC INDICATED
[2019-07-20] MEDS ORDERED: FLUCONAZOLE 200 MG TABLET PO STA (11:17)
[2019-07-20 11:21] VITALS: BP 126/99
[2019-07-20] MEDS ORDERED: CEFDINIR 300 MG CAPSULE ONE (11:23)
[2019-07-20] MEDS ORDERED: FLUCONAZOLE 100 MG TABLET ONE (11:23)
[2019-07-20] MEDS ORDERED: FLUCONAZOLE 200 MG TABLET PO ONE (11:30)
[2019-07-20] MEDS ORDERED: CEFDINIR 300 MG CAPSULE PO ONE (11:30)
--- NOTE | 2019-07-20 11:44 | NUR ---
Patient given discharge instructions and they have confirmed that they understand the instructions. Patient ambulatory with steady gait. Pt left with d/c paperwork, Rx, and all personal belongings. NADN. No needs expressed.
== END 2019-07-20 11:46 | disposition home or self-care (01) ==
LOC: ED 09:24
DX: N30.01 Acute cystitis with hematuria (principal); N40.1 Benign prostatic hyperplasia with lower urinary tract symptoms; T83.098A Other mechanical complication of other urinary catheter, initial encounter; R33.8 Other retention of urine; Z72.9 Problem related to lifestyle, unspecified; Z86.73 Personal history of transient ischemic attack (TIA), and cerebral infarction without residual deficits; F17.200 Nicotine dependence, unspecified, uncomplicated
CPT/HCPCS: 36415; 51702; 80048; 81001; 82040; 85025; 87077; 87086; 87106; 87186; 99283; 99284

== ENCOUNTER 2019-09-08 04:35 | Emergency (ER) | payer MEDICARE ==
[~2019-09-08] VITALS: Ht 180.3 cm; Wt 60.0 kg
--- NOTE | 2019-09-08 05:12 | NUR ---
PT STATES THAT HE HAS A MALAGON CATH THAT HAS NOT DRAINED IN 12 HOURS, FRANCISCO KNOX AT BEDSIDE, MALAGON REPLACED WITH RETURN OF CLOUDY URINE, PT STATES RELIEF NOTED
[2019-09-08 05:15] LABS: CULTURE INDICATED? YES; MICROSCOPIC INDICATED
[2019-09-08 05:32] VITALS: BP 135/83
--- NOTE | 2019-09-08 05:33 | NUR ---
PT IN NAD VSS
[2019-09-08] MEDS ORDERED: CEFTRIAXONE 1,000 MG IM ONE (06:00)
[2019-09-08] MEDS ORDERED: CEFTRIAXONE 1,000 MG ONE (06:19)
--- NOTE | 2019-09-08 06:51 | NUR ---
RECEIVED REPORT FROM EMILE OVALLE. PT SITTING ON EDGE OF BED AWAITING DISCHARGE PAPERS
== END 2019-09-08 07:09 | disposition home or self-care (01) ==
LOC: ED 05:20
DX: N30.91 Cystitis, unspecified with hematuria (principal); N40.1 Benign prostatic hyperplasia with lower urinary tract symptoms; R33.8 Other retention of urine; Z86.73 Personal history of transient ischemic attack (TIA), and cerebral infarction without residual deficits
CPT/HCPCS: 51702; 81001; 87077; 87086; 87186; 96372; 99284; J0696

== ENCOUNTER 2019-11-19 10:51 | Emergency (ER) | payer SELFPAY ==
[~2019-11-19] VITALS: Ht 177.8 cm; Wt 55.0 kg
[~2019-11-19 10:51] MED LIST changes: +ALEN10TA10 PO; -ALEN10TA7 PO
--- NOTE | 2019-11-19 12:01 | NUR ---
TASK RN: ASSISSTED PT TO RMOVE CLOTHES, URETHRAL CATH IN PLACE W/O ANY SECUREMENT DEVICE. PT VSS, PT ASSESSMENT NOTED. SBAR RPT TO YAMILE SIMONS
[2019-11-19] MEDS ORDERED: FOSFOMYCIN 3 GM PACKET PO ONE (12:30)
--- NOTE | 2019-11-19 13:03 | NUR ---
report received from break RN when this RN returned from meal break. this RN clarified with MD Rodriguez that he would like RN to remove crabtree cath that pt arrived with (pt states has been in place x 2 months) and replace with new crabtree cath. Crabtree cath replaced by this RN with YAMILE Bedoya assisting, sterile technique maintained. paul care provided before cath placement with theraworx per policy. pt tolerated well. approx 400mL concentrated yellow urine has been drained via cath, urine still flowing freely out of cath. pt states suprapubic pressure is now relieved. PO antibiotic not in ED steffi bird from pharmacy.
[2019-11-19] MEDS ORDERED: FOSFOMYCIN 3 GM PACKET ONE (13:13)
--- NOTE | 2019-11-19 13:20 | NUR ---
pt medicated per emar, tolerated well. awaiting ua results and dispo.
[2019-11-19 13:31] LABS: MICROSCOPIC INDICATED
[2019-11-19 13:32] LABS: CULTURE INDICATED? YES
[2019-11-19 14:06] VITALS: BP 158/89
--- NOTE | 2019-11-19 14:23 | NUR ---
PT GIVEN DC INSTRUCTIONS. PT REFUSES LEG BAG APPLICATION IN ED, STATES HE PREFERRS LARGE BAG. PT GIVEN EXTENISVE EDUCATION REGARDING MALAGON CATH CARE BY THIS RN, WELL INSTRUCTIONS TO FOLLOW UP WITH URO REFERRAL PROVIDED. PT VERBALIZES UNDERSTANDING. PT A&O, RESPS EVEN AND UNLABORED, NADN AT [place]. PT HAS VOIDED APPROX 600ML CONCENTRATED YELLOW URINE SINCE MALAGON PLACEMENT. PT AMB TO DC DESK WITH STEADY GAIT USING OWN WALKER. ALL QUESTIONS ANSWERED.
== END 2019-11-19 14:23 | disposition home or self-care (01) ==
LOC: ED 14:17
DX: R33.9 Retention of urine, unspecified (principal); R00.0 Tachycardia, unspecified; F17.210 Nicotine dependence, cigarettes, uncomplicated; Z86.73 Personal history of transient ischemic attack (TIA), and cerebral infarction without residual deficits
CPT/HCPCS: 51702; 81001; 87077; 87086; 87186; 99284

== ENCOUNTER 2020-01-02 00:27 | Emergency (ER) | payer SELFPAY ==
[~2020-01-02] VITALS: Ht 177.8 cm; Wt 54.0 kg
--- NOTE | 2020-01-02 00:43 | NUR ---
pt here because crabtree is not draining. pt was suppose to follow up with urology but has not been able to. at bedside
--- NOTE | 2020-01-02 01:21 | NUR ---
attempted to flush crabtree with no success. replaced crabtree and ua sent to lab. pt feeling better. crabtree still draining at this time.
[2020-01-02 01:41] LABS: CULTURE INDICATED? YES; MICROSCOPIC INDICATED
--- NOTE | 2020-01-02 01:41 | NUR ---
REPORT FROM ANDREI OVALLE ASSUMING CARE AT THIS TIME.
[2020-01-02 01:53] VITALS: BP 141/85
[2020-01-02] MEDS ORDERED: CIPROFLOXACIN 500 MG TABLET PO ONE (02:00)
== END 2020-01-02 02:06 | disposition home or self-care (01) ==
LOC: ED 01:22
DX: T83.091A Other mechanical complication of indwelling urethral catheter, initial encounter (principal); N30.01 Acute cystitis with hematuria; N40.1 Benign prostatic hyperplasia with lower urinary tract symptoms; R33.8 Other retention of urine; F17.210 Nicotine dependence, cigarettes, uncomplicated; Z86.73 Personal history of transient ischemic attack (TIA), and cerebral infarction without residual deficits
CPT/HCPCS: 51702; 81001; 87077; 87086; 87186; 99284; 99406

== ENCOUNTER 2020-01-23 12:06 | Emergency (ER) | payer MEDICARE, OTHER ==
[~2020-01-23] VITALS: Ht 180.3 cm; Wt 63.7 kg
[2020-01-23] MEDS ORDERED: SODIUM CHLORIDE FLUSH 10ML SYR IVF ONE (12:30)
[2020-01-23 12:42] LABS: BASOPHILS # (AUTO) 0.01 x10^3/uL (0-0.1); BASOPHILS % (AUTO) 0 % (0-1); EOSINOPHILS # (AUTO) 0.03 x10^3/uL (0-0.4); EOSINOPHILS % (AUTO) 0 % (1-7); LYMPHOCYTES # (AUTO) 0.87 x10^3/uL (1-3.4); LYMPHOCYTES % (AUTO) 9 % (22-44); MD NO; MEAN CORPUSCULAR HEMOGLOBIN 32.6 pg (27.5-34.5); MEAN CORPUSCULAR HGB CONC 33.6 g/dL (33.2-36.2); MEAN CORPUSCULAR VOLUME 96.9 fL (81-97); MEAN PLATELET VOLUME 9.2 fL (7.4-10.4); MONOCYTES # (AUTO) 0.31 x10^3/uL (0.2-0.8); MONOCYTES % (AUTO) 3 % (2-9); NEUTROPHILS # (AUTO) 8.01 x10^3/uL (1.8-6.8); NEUTROPHILS % (AUTO) 87 % (42-75); PLATELET COUNT 198 x10^3/uL (130-400); RED BLOOD COUNT 5.25 x10^6/uL (4.38-5.82); RED CELL DISTRIBUTION WIDTH 15.1 % (9.4-14.8)
[2020-01-23 12:51] LABS: ALANINE AMINOTRANSFERASE 133 U/L (12-78); ALBUMIN 3.9 g/dL (3.4-5.0); ANION GAP 14 mmol/L (5-15); CALCIUM 8.8 mg/dL (8.5-10.1); CHLORIDE 103 mmol/L (98-107); CREATININE 1.33 mg/dL (0.7-1.3)
[2020-01-23 12:54] LABS: ALKALINE PHOSPHATASE 74 U/L (45-117); BILIRUBIN,TOTAL 0.9 mg/dL (0.2-1.0); TOTAL PROTEIN 8.3 g/dL (6.4-8.2)
--- NOTE | 2020-01-23 13:10 | NUR ---
PT BIB [facility] C/O NO URINE OUTPUT FROM INDWELLING MALAGON CATHETER X 12 HOURS. PT REPORTS HE HAS HAD THE MALAGON X 4 MONTHS. MALAGON CATHETER REPLACED. BLOOD TINGED, SLIGHTLY SEDIMENTED BUT YELLOW URINE OUTPUT. PT AO X 4. SKIN PWD. RESP EVEN AND UNLABORED. PT ON CONT BP, CARDIAC AND O2 MONITORS. CALL LIGHT WITHIN REACH.
[2020-01-23 13:24] LABS: CULTURE INDICATED? YES; MICROSCOPIC INDICATED
--- NOTE | 2020-01-23 14:09 | NUR ---
PT NOTED TO HAVE DRESSED HIMSELF AND BE UP WALKING IN ROOM WITH WALKER. PT STEADY UPON AMBULATION. PT AO X 4. SKIN PWD. RESP EVEN AND UNLABORED.
[2020-01-23 14:24] VITALS: BP 165/103
== END 2020-01-23 14:27 | disposition home or self-care (01) ==
LOC: ED 12:51
DX: R33.9 Retention of urine, unspecified (principal); N28.9 Disorder of kidney and ureter, unspecified; E86.0 Dehydration; I25.2 Old myocardial infarction; R00.0 Tachycardia, unspecified; R07.9 Chest pain, unspecified; Z86.73 Personal history of transient ischemic attack (TIA), and cerebral infarction without residual deficits
CPT/HCPCS: 36415; 51702; 71045; 80053; 81001; 83605; 85025; 87040; 87077; 87086; 87186; 93005; 99285

== ENCOUNTER 2020-01-27 03:50 | Emergency (ER) | payer MEDICARE ==
[~2020-01-27] VITALS: Ht 180.3 cm; Wt 63.0 kg
[2020-01-27 03:58] VITALS: BP 199/113
[2020-01-27 04:27] LABS: MICROSCOPIC AUTO
[2020-01-27 04:31] LABS: CULTURE INDICATED? YES
[2020-01-27] MEDS ORDERED: CIPROFLOXACIN 500 MG TABLET PO ONE (05:00)
[2020-01-27] MEDS ORDERED: CIPROFLOXACIN 500 MG TABLET ONE (05:05)
== END 2020-01-27 05:12 | disposition home or self-care (01) ==
LOC: ED 04:41
DX: N40.1 Benign prostatic hyperplasia with lower urinary tract symptoms (principal); R33.8 Other retention of urine; N30.01 Acute cystitis with hematuria; F17.200 Nicotine dependence, unspecified, uncomplicated
CPT/HCPCS: 51702; 81001; 87077; 87086; 87186; 99284

== ENCOUNTER 2020-04-25 00:30 | Emergency (ER) | payer MEDICARE ==
[~2020-04-25] VITALS: Ht 180.3 cm; Wt 60.0 kg
[~2020-04-25 00:30] MED LIST changes: +AMLO10TA8 PO; +AMPI500C2 PO; +ASPI-496 PO; +CEFT1PIG IV; +DOCU100C33 PO; +GUAI-103 PO; +LACT1CAP35 PO; +LOSA50TA2 PO; +TRAM50TA2 PO
--- NOTE | 2020-04-25 00:45 | NUR ---
PT BIB [facility] AFTER BEING FOUND ASLEEP ON THE GROUND OUTSIDE THE [facility]. PT IS A POOR HISTORIAN, A&Ox3 PER BASELINE. PT STATED HE WAS TOO WEAK TO GET UP OFF OF THE GROUND HIMSELF, AND REQUESTED TO BE TAKEN TO THE ER TO BE CHECKED OUT. PT HAS A MALAGON IN PLACE, BAG IS LEAKING. BG 109. DENIES ANY FALL, INJURY, OR FURTHER PHYSICAL COMPLAINTS. MALAGON BAG REPLACED, STAT LOCK IN PLACE, MALAGON CLAMPED APPROPRIATELY. PT PROVIDED WITH WARM BLANKETS, ATTACHED TO MONITORS, AND DRESSED IN GOWN. DENIES ANY FURTHER NEEDS AT THIS TIME, CALL LIGHT IN REACH.
[2020-04-25 01:08] LABS: BASOPHILS # (AUTO) 0.06 x10^3/uL (0-0.1); BASOPHILS % (AUTO) 1 % (0-1); EOSINOPHILS # (AUTO) 0.24 x10^3/uL (0-0.4); EOSINOPHILS % (AUTO) 2 % (1-7); LYMPHOCYTES # (AUTO) 1.98 x10^3/uL (1-3.4); LYMPHOCYTES % (AUTO) 18 % (22-44); MD NO; MEAN CORPUSCULAR HEMOGLOBIN 30.3 pg (27.5-34.5); MEAN CORPUSCULAR HGB CONC 33.2 g/dL (33.2-36.2); MEAN CORPUSCULAR VOLUME 91.3 fL (81-97); MEAN PLATELET VOLUME 9.9 fL (7.4-10.4); MONOCYTES # (AUTO) 0.79 x10^3/uL (0.2-0.8); MONOCYTES % (AUTO) 7 % (2-9); NEUTROPHILS # (AUTO) 7.83 x10^3/uL (1.8-6.8); NEUTROPHILS % (AUTO) 72 % (42-75); PLATELET COUNT 275 x10^3/uL (130-400); RED BLOOD COUNT 4.14 x10^6/uL (4.38-5.82); RED CELL DISTRIBUTION WIDTH 13.9 % (9.4-14.8)
[2020-04-25 01:17] LABS: ALBUMIN 3.3 g/dL (3.4-5.0); ANION GAP 9 mmol/L (5-15); CALCIUM 8.8 mg/dL (8.5-10.1); CHLORIDE 107 mmol/L (98-107); CREATININE 1.98 mg/dL (0.7-1.3)
--- NOTE | 2020-04-25 02:31 | NUR ---
PT RESTING IN BED. URINE SAMPLE DRAWN OFF OF NEW MALAGON PORT AND SENT WITHOUT ISSUE. PT PROVIDED WITH ORAL FLUIDS. DENIES ANY CURRENT NEEDS OR CONCERNS. CALL LIGHT IN REACH.
[2020-04-25 02:38] VITALS: BP 134/78
[2020-04-25 02:50] LABS: MICROSCOPIC INDICATED
== END 2020-04-25 04:07 | disposition home or self-care (01) ==
LOC: ED 02:00
DX: R53.1 Weakness (principal); Z72.9 Problem related to lifestyle, unspecified; R07.9 Chest pain, unspecified; I10 Essential (primary) hypertension; Z86.73 Personal history of transient ischemic attack (TIA), and cerebral infarction without residual deficits
CPT/HCPCS: 36415; 71045; 80048; 81001; 82040; 85025; 87086; 93005; 99285

== ENCOUNTER 2020-05-05 16:22 | Emergency (ER) | payer MEDICARE ==
[~2020-05-05] VITALS: Ht 180.3 cm; Wt 66.0 kg
--- NOTE | 2020-05-05 16:22 | NUR ---
PT TO SHOWER ROOM FOR FECAL MATTER & FLIES TO BLE PRIOR TO ROOMING.
--- NOTE | 2020-05-05 17:10 | NUR ---
PT TO ROOM FROM SHOWER, UPRIGHT ON GURNEY, RESPONDS APPROP TO STAFF, NAD, COMFORT MEASURES PROVIDED, CALL LIGHT WITHIN REACH.
[2020-05-05 17:56] LABS: BASOPHILS # (AUTO) 0.01 x10^3/uL (0-0.1); BASOPHILS % (AUTO) 0 % (0-1); EOSINOPHILS # (AUTO) 0.03 x10^3/uL (0-0.4); EOSINOPHILS % (AUTO) 0 % (1-7); LYMPHOCYTES # (AUTO) 0.49 x10^3/uL (1-3.4); LYMPHOCYTES % (AUTO) 5 % (22-44); MD NO; MEAN CORPUSCULAR HEMOGLOBIN 29.8 pg (27.5-34.5); MEAN CORPUSCULAR HGB CONC 32.6 g/dL (33.2-36.2); MEAN CORPUSCULAR VOLUME 91.4 fL (81-97); MEAN PLATELET VOLUME 9.8 fL (7.4-10.4); MONOCYTES # (AUTO) 0.27 x10^3/uL (0.2-0.8); MONOCYTES % (AUTO) 3 % (2-9); NEUTROPHILS # (AUTO) 8.63 x10^3/uL (1.8-6.8); NEUTROPHILS % (AUTO) 92 % (42-75); PLATELET COUNT 315 x10^3/uL (130-400); RED BLOOD COUNT 4.39 x10^6/uL (4.38-5.82); RED CELL DISTRIBUTION WIDTH 13.8 % (9.4-14.8)
[2020-05-05 18:09] LABS: ALANINE AMINOTRANSFERASE 11 U/L (12-78); ANION GAP 5 mmol/L (5-15); CALCIUM 8.1 mg/dL (8.5-10.1); CHLORIDE 109 mmol/L (98-107); CREATININE 1.62 mg/dL (0.7-1.3)
[2020-05-05 18:12] LABS: ALKALINE PHOSPHATASE 86 U/L (45-117); BILIRUBIN,TOTAL 0.5 mg/dL (0.2-1.0); TOTAL PROTEIN 7.2 g/dL (6.4-8.2)
--- NOTE | 2020-05-05 19:07 | NUR ---
REPORT GIVEN TO KINZA
[2020-05-05] MEDS ORDERED: CEFTRIAXONE 1,000 MG ONE (19:22)
[2020-05-05] MEDS ORDERED: CEFTRIAXONE 1,000 MG IM ONE (19:30)
[2020-05-05] MEDS ORDERED: CEFTRIAXONE PMX 1GM/50ML 50 ML IV ONE (19:30)
[2020-05-05 19:59] LABS: MICROSCOPIC INDICATED
--- NOTE | 2020-05-05 20:57 | NUR ---
Pt dced at this time, pt provided with new clothes and taxi voucher back to [facility],
[2020-05-05 20:58] VITALS: BP 133/79
== END 2020-05-05 21:00 | disposition home or self-care (01) ==
LOC: ED 18:17
DX: N30.00 Acute cystitis without hematuria (principal); Z72.9 Problem related to lifestyle, unspecified; S00.81XA Abrasion of other part of head, initial encounter; I10 Essential (primary) hypertension; F17.200 Nicotine dependence, unspecified, uncomplicated; Z86.73 Personal history of transient ischemic attack (TIA), and cerebral infarction without residual deficits; W01.0XXA Fall on same level from slipping, tripping and stumbling without subsequent striking against object, initial encounter; Y93.89 Activity, other specified; Y92.410 Unspecified street and highway as the place of occurrence of the external cause; Y99.8 Other external cause status
CPT/HCPCS: 36415; 70450; 80053; 81001; 85025; 87077; 87086; 87186; 96372; 99284; J0696

== ENCOUNTER 2020-05-12 12:32 | Emergency (ER) | payer MEDICARE ==
[~2020-05-12] VITALS: Ht 180.3 cm; Wt 50.0 kg
--- NOTE | 2020-05-12 12:41 | NUR ---
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 HE WAS WAITING IN LINE TO EAT LUNCH. SKINTEAR ON R FOREARM DRESSED W GAUZE. HE IS ENJOYING HIS LUNCH ON AN [employer] WHILE AWAITING AN MD TO ASSESS.
[2020-05-12] MEDS ORDERED: BACITRACIN ZINC OINT 500U/GM, 0.9 GM ONE (13:01)
[2020-05-12 13:49] VITALS: BP 123/63
== END 2020-05-12 14:07 | disposition home or self-care (01) ==
LOC: ED 13:00
DX: S51.801A Unspecified open wound of right forearm, initial encounter (principal); I10 Essential (primary) hypertension; Z86.73 Personal history of transient ischemic attack (TIA), and cerebral infarction without residual deficits; Z87.891 Personal history of nicotine dependence; W07.XXXA Fall from chair, initial encounter; Y93.89 Activity, other specified; Y92.89 Other specified places as the place of occurrence of the external cause; Y99.8 Other external cause status
CPT/HCPCS: 99283

== ENCOUNTER 2020-05-19 07:19 | Inpatient (IN) | payer MEDICARE ==
[~2020-05-19] VITALS: Ht 177.8 cm; Wt 63.1 kg
--- NOTE | 2020-05-19 07:25 | NUR ---
ROBERTA FROM [facility] FOR GENERALIZED WEAKNESS, WITH BLACK TARRY STOOLS FOR UNKNOWN TIME AND RIGHT FOREARM WOUND. PT ORIENTED TO SELF AND PLACE ONLY. POOR HISTORIAN. PT REPORTS UNABLE TO AMBULATE EVEN WITH OWN WALKER WITHOUT ASSISTANCE. PT PLACED ON CONTINUOUS PULSE OX, BP, CARDIAC MONITORS. VSS. SR ON MONITOR. PT ARRIVES COVERED IN STOOL, FORMED BROWN STOOL. 14 FR MALAGON CATH IN PLACE AT ARRIVAL WITH REDNESS AND YELLOW PURULENT DRAINAGE AT URETHRA. PT ACTIVELY COUGHING, PRODUCTIVE. DENIES ANY EXPOSURE TO COVID. SARAH SINGH AT BEDSIDE FOR EVALUATION. CALL LIGHT IN REACH. FALL PRECAUTIONS IN PLACE.
[2020-05-19] MEDS ORDERED: SODIUM CHLORIDE 0.9% 1,000ML IVBOLUS ONE (07:30)
--- NOTE | 2020-05-19 07:55 | NUR ---
IV PLACED, LABS DRAWN. IVF INFUSING PER ORDER. PT CLEANSED OF ALL STOOL, CLEAN LINENS, TRENTON PAD, AND WAFFLE MATTRESS IN PLACE. TO REMOVE MALAGON PT ARRIVED WITH AND STRIGHT CATH PT FOR UA PER SARAH SINGH. LAB AT BEDSIDE FOR BLOOD CULTURE DRAW X2. VSS. SR ON MONITOR. CALL LIGHT IN REACH. FALL PRECAUTIONS IN PLACE.
[2020-05-19] MEDS ORDERED: NEOSPORIN OINT. PKT 1 PACKET ONE (08:11)
--- NOTE | 2020-05-19 08:15 | NUR ---
MOLD HOISTER AT BEDSIDE TO CLEAN AND DRESS LFA WOUND PER SARAH SINGH. LAB REMAINS AT BEDSIDE FOR BLOOD CULTURE DRAW
[2020-05-19 08:19] LABS: ALANINE AMINOTRANSFERASE 13 U/L (12-78); ALBUMIN 3.3 g/dL (3.4-5.0); ANION GAP 3 mmol/L (5-15); CALCIUM 9.2 mg/dL (8.5-10.1); CHLORIDE 110 mmol/L (98-107); MEAN CORPUSCULAR HEMOGLOBIN 29.1 pg (27.5-34.5); MEAN CORPUSCULAR HGB CONC 32.2 g/dL (33.2-36.2); MEAN CORPUSCULAR VOLUME 90.6 fL (81-97); MEAN PLATELET VOLUME 9.9 fL (7.4-10.4); PLATELET COUNT 363 x10^3/uL (130-400); RED BLOOD COUNT 4.67 x10^6/uL (4.38-5.82); RED CELL DISTRIBUTION WIDTH 14.2 % (9.4-14.8)
[2020-05-19 08:22] LABS: ALKALINE PHOSPHATASE 92 U/L (45-117); BILIRUBIN,TOTAL 0.6 mg/dL (0.2-1.0); CREATININE 1.42 mg/dL (0.7-1.3); TOTAL PROTEIN 7.9 g/dL (6.4-8.2)
--- NOTE | 2020-05-19 08:23 | NUR ---
PT TO CT.
--- NOTE | 2020-05-19 08:31 | NUR ---
PT BACK FROM CT. DR. SOUZA AT BEDSIDE FOR EVALUATION.
--- NOTE | 2020-05-19 08:45 | NUR ---
DISCUSSED POC/PT RESULTS WITH SARAH SINGH AND DR. SOUZA, PT DOES NOT MEET SEPSIS CRITERIA AT THIS TIME PER ERP.
[2020-05-19 08:56] LABS: BASOPHILS # (AUTO) 0.04 x10^3/uL (0-0.1); BASOPHILS % (AUTO) 0 % (0-1); EOSINOPHILS # (AUTO) 0.04 x10^3/uL (0-0.4); EOSINOPHILS % (AUTO) 0 % (1-7); LYMPHOCYTES # (AUTO) 0.63 x10^3/uL (1-3.4); LYMPHOCYTES % (AUTO) 3 % (22-44); MD SCAN; MONOCYTES # (AUTO) 0.89 x10^3/uL (0.2-0.8); MONOCYTES % (AUTO) 4 % (2-9); NEUTROPHILS # (AUTO) 21.09 x10^3/uL (1.8-6.8); NEUTROPHILS % (AUTO) 93 % (42-75)
--- NOTE | 2020-05-19 09:03 | NUR ---
PAULINE MACHINE CAGE MAKER REMAINS AT BEDSIDE, CLEANSING AND DRESSING WOUND PER MD ORDERS.
--- NOTE | 2020-05-19 09:28 | NUR ---
14 FR MALAGON REMOVED REMOVED PER SARAH SINGH ORDER, 1400 ML OF NAI COLORED URINE NOTED IN URINE DRAINAGE BAG. MALAGON CATH REMOVED, WITH PURULENT DRAINAGE NOTED. PENIS/PERINEAL AREA CLEANSED PER POLICY. REDNESS AND YELLOW PURULENT DRAINAGE AT URETHRA. STRAIGHT CATH COMPLETED, PT TOLERATED WELL, DENIES PAIN OR DISCOMFORT. CLEAN TRENTON PAD IN PLACE, 15 ML OF CLOUDY YELLOW URINE WITH PUS OBTAININED AND WALKED TO LAB FOR SAMPLE. PT REPOSITIONED FOR COMFORT, BLANKET PROVIDED. IV FLUIDS CONTINUE TO INFUSE. REMINDING PT TO KEEP ARM STRAIGHT FOR FLUID INFUSION. VSS, CALL LIGHT WITHIN REACH, FALL PRECAUTIONS IN PLACE.
[2020-05-19 09:50] LABS: MICROSCOPIC INDICATED
--- NOTE | 2020-05-19 09:56 | NUR ---
PT UP FOR RECHECK
[2020-05-19] MEDS ORDERED: CEFTRIAXONE PMX 1GM/50ML 50 ML ONE (10:16)
--- NOTE | 2020-05-19 10:27 | NUR ---
PT UPDATED ON POC, TO BE ADMITTED, VERBALIZED UNDERSTANDING, AGREES TO POC. IV ANTIOBIOTIC INFUSING PER ORDER, BLOOD CULTURES DRAWN X2 PRIOR TO ADMIN. VSS. SR ON MONITOR. DENIES ANY PAIN AND NEED TO USE RESTROOM. URINAL LEFT AT BEDSIDE PER PT REQUEST. CALL LIGHT IN REACH. FALL PRECAUTIONS IN PLACE.
--- NOTE | 2020-05-19 10:33 | NUR ---
DISCUSSED ADMIT DIAGNOSIS WITH DR. SOUZA, NO ADDITIONAL IVF TO BE GIVEN PER
--- NOTE | 2020-05-19 10:57 | NUR ---
ADMIT PROVIDER AT BEDSIDE FOR EVAL
[2020-05-19] MEDS ORDERED: ACETAMINOPHEN 325 MG TABLET PO PRN (11:00)
[2020-05-19] MEDS ORDERED: CEFTRIAXONE PMX 1GM/50ML 50 ML IV ONE (11:00)
[2020-05-19] MEDS ORDERED: ONDANSETRON 2MG/ML, 2ML IVPush PRN (11:00)
[2020-05-19] MEDS ORDERED: HYDROcodone/APAP 5/325 TABLET PO PRN (11:00)
--- NOTE | 2020-05-19 11:27 | NUR ---
ADMITTING PROVIDER REMAINS AT BEDSIDE. REPOSITIONED FOR COMFORT AND RESTING COMFORTABLY. AWAITING ROOM ASSIGNMENT ON FLOOR, VSS, SINUS RYTHM ON MONITOR, DECLINES NEED FOR RESTROOM. CALL LIGHT WITHIN REACH, FALL PRECAUTIONS IN PLACE.
[2020-05-19 11:32] LABS: INTERNATIONAL NORMALIZED RATIO 0.99 (0.93-1.1); PROTHROMBIN TIME 10.2 Seconds (9.6-11.5)
[2020-05-19] MEDS ORDERED: PIPERACILLIN/TAZO/PMX 3.375GM 50 ML ONE (11:50)
[2020-05-19] MEDS: PIPERACILLIN/TAZO/PMX 3.375GM 50 ML IV SCH ×2 (11:54→19:51)
[2020-05-19] MEDS: SODIUM CHLORIDE 0.9% 1,000 ML IV SCH (11:55)
--- NOTE | 2020-05-19 12:09 | NUR ---
PT REPOSITIONED FOR COMFORT. DENIES NEED TO USE RESTROOM. ABD/PELVIS SOFT, NO DISTENTION NOTED. TRENTON PAD REMAINS CDI. IV ABX INFUSING ON PUMP PER ORDER. ROOM RECEIVED ON FLOOR TO CALL REPORT. VSS, SINUS RHYTHM. CALL LIGHT AND FALL PRECAUTIONS IN PLACE.
[2020-05-19 12:14] LABS: HCT (SEDRATE) 42.3 % (39.2-51.8)
--- NOTE | 2020-05-19 12:27 | NUR ---
BED 402-2 RECEIVED, REPORT CALLED TO DORI OVALLE AT THIS TIME. PT READY FOR TRANSPORT
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
[2020-05-19 13:47] VITALS: BP 158/90
[2020-05-19 18:42] VITALS: BP 140/85
[2020-05-19 18:47] LABS: MICROSCOPIC AUTO
[2020-05-19] MEDS: ASPIRIN 81 MG TABLET EC PO SCH ×2 (20:44→20:45)
[2020-05-19] MEDS ORDERED: FAMOTIDINE 20 MG/2 ML IVPush SCH (21:00)
[2020-05-20] MEDS: SODIUM CHLORIDE 0.9% 1,000 ML IV SCH ×2 (00:21→16:31)
[2020-05-20 00:51] VITALS: BP 150/83
[2020-05-20] MEDS: PIPERACILLIN/TAZO/PMX 3.375GM 50 ML IV SCH ×3 (02:35→20:07)
[2020-05-20 05:05] LABS: BASOPHILS # (AUTO) 0.05 x10^3/uL (0-0.1); BASOPHILS % (AUTO) 0 % (0-1); EOSINOPHILS # (AUTO) 0.26 x10^3/uL (0-0.4); EOSINOPHILS % (AUTO) 2 % (1-7); LYMPHOCYTES % (AUTO) 6 % (22-44); MD NO; MEAN CORPUSCULAR HEMOGLOBIN 29.3 pg (27.5-34.5); MEAN CORPUSCULAR HGB CONC 32.5 g/dL (33.2-36.2); MEAN CORPUSCULAR VOLUME 90.2 fL (81-97); MEAN PLATELET VOLUME 10.5 fL (7.4-10.4); MONOCYTES # (AUTO) 0.65 x10^3/uL (0.2-0.8); MONOCYTES % (AUTO) 5 % (2-9); NEUTROPHILS # (AUTO) 11.29 x10^3/uL (1.8-6.8); NEUTROPHILS % (AUTO) 87 % (42-75); PLATELET COUNT 293 x10^3/uL (130-400); RED BLOOD COUNT 4.01 x10^6/uL (4.38-5.82); RED CELL DISTRIBUTION WIDTH 13.9 % (9.4-14.8)
[2020-05-20 05:11] LABS: ANION GAP 7 mmol/L (5-15); CALCIUM 8.2 mg/dL (8.5-10.1); CHLORIDE 110 mmol/L (98-107)
[2020-05-20 05:12] LABS: CREATININE 1.81 mg/dL (0.7-1.3)
[2020-05-20 07:05] VITALS: BP 115/76
[2020-05-20] MEDS: SENNA/DOCUSATE TABLET PO SCH (09:00)
[2020-05-20] MEDS: FAMOTIDINE 20 MG TABLET PO SCH (09:00)
[2020-05-20] MEDS: AMLODIPINE 10 MG TAB PO SCH (09:00)
[2020-05-20] MEDS ORDERED: FAMOTIDINE 20 MG/2 ML IVPush SCH (09:00)
[2020-05-20] MEDS: ASPIRIN 81 MG TABLET EC PO SCH ×2 (09:00→20:07)
[2020-05-20 13:24] VITALS: BP 103/60
[2020-05-20 19:00] VITALS: BP 103/64
[2020-05-20] MEDS: MELATONIN 5 MG TABLET PO PRN (20:07)
[2020-05-21 01:07] VITALS: BP 113/67
[2020-05-21] MEDS: PIPERACILLIN/TAZO/PMX 3.375GM 50 ML IV SCH ×3 (03:00→20:00)
[2020-05-21] MEDS: SODIUM CHLORIDE 0.9% 1,000 ML IV SCH ×2 (06:20→19:40)
[2020-05-21 06:22] VITALS: BP 120/67
[2020-05-21] MEDS: FAMOTIDINE 20 MG TABLET PO SCH (08:31)
[2020-05-21] MEDS: SENNA/DOCUSATE TABLET PO SCH (08:31)
[2020-05-21] MEDS: AMLODIPINE 10 MG TAB PO SCH (08:31)
[2020-05-21] MEDS: ASPIRIN 81 MG TABLET EC PO SCH ×2 (08:31→20:00)
[2020-05-21 12:24] VITALS: BP 144/82
[2020-05-21] MEDS: MELATONIN 5 MG TABLET PO PRN (20:00)
[2020-05-21 20:27] VITALS: BP 117/69
[2020-05-22 00:40] VITALS: BP 120/67
[2020-05-22] MEDS: PIPERACILLIN/TAZO/PMX 3.375GM 50 ML IV SCH ×3 (03:00→18:36)
[2020-05-22 07:04] VITALS: BP 147/83
[2020-05-22] MEDS: FAMOTIDINE 20 MG TABLET PO SCH (08:16)
[2020-05-22] MEDS: SENNA/DOCUSATE TABLET PO SCH (08:16)
[2020-05-22] MEDS: ASPIRIN 81 MG TABLET EC PO SCH ×2 (08:16→20:21)
[2020-05-22] MEDS: AMLODIPINE 10 MG TAB PO SCH (08:16)
[2020-05-22] MEDS: SODIUM CHLORIDE 0.9% 1,000 ML IV SCH ×2 (08:23→16:40)
[2020-05-22 12:30] VITALS: BP 166/89
[2020-05-22 18:19] VITALS: BP 146/82
[2020-05-22 19:27] VITALS: BP 134/79
[2020-05-23 01:59] VITALS: BP 143/82
[2020-05-23] MEDS: PIPERACILLIN/TAZO/PMX 3.375GM 50 ML IV SCH ×2 (03:00→11:21)
[2020-05-23] MEDS: SODIUM CHLORIDE 0.9% 1,000 ML IV SCH (04:00)
[2020-05-23 05:30] LABS: BASOPHILS # (AUTO) 0.06 x10^3/uL (0-0.1); BASOPHILS % (AUTO) 1 % (0-1); EOSINOPHILS % (AUTO) 7 % (1-7); LYMPHOCYTES # (AUTO) 1.93 x10^3/uL (1-3.4); LYMPHOCYTES % (AUTO) 22 % (22-44); MD NO; MEAN CORPUSCULAR HEMOGLOBIN 28.5 pg (27.5-34.5); MEAN CORPUSCULAR HGB CONC 31.6 g/dL (33.2-36.2); MEAN CORPUSCULAR VOLUME 90.4 fL (81-97); MEAN PLATELET VOLUME 9.8 fL (7.4-10.4); MONOCYTES # (AUTO) 0.63 x10^3/uL (0.2-0.8); MONOCYTES % (AUTO) 7 % (2-9); NEUTROPHILS # (AUTO) 5.54 x10^3/uL (1.8-6.8); NEUTROPHILS % (AUTO) 63 % (42-75); PLATELET COUNT 401 x10^3/uL (130-400); RED BLOOD COUNT 4.49 x10^6/uL (4.38-5.82); RED CELL DISTRIBUTION WIDTH 14.1 % (9.4-14.8)
[2020-05-23 05:38] LABS: ALBUMIN 2.7 g/dL (3.4-5.0); ANION GAP 7 mmol/L (5-15); CALCIUM 8.7 mg/dL (8.5-10.1); CHLORIDE 112 mmol/L (98-107)
[2020-05-23 05:39] LABS: CREATININE 1.43 mg/dL (0.7-1.3)
[2020-05-23 06:48] VITALS: BP 149/89
[2020-05-23] MEDS: ASPIRIN 81 MG TABLET EC PO SCH (09:17)
[2020-05-23] MEDS: SENNA/DOCUSATE TABLET PO SCH (09:17)
[2020-05-23] MEDS: FAMOTIDINE 20 MG TABLET PO SCH (09:17)
[2020-05-23] MEDS: AMLODIPINE 10 MG TAB PO SCH (09:18)
[2020-05-23] MEDS ORDERED: AMOX1TAB12 PO (12:01)
[2020-05-23] MEDS ORDERED: ACET325T26 PO (12:01)
[2020-05-23] MEDS ORDERED: MELA5TAB14 PO (12:01)
[2020-05-23] MEDS ORDERED: Senna/Docusate PO (12:01)
[2020-05-23] MEDS ORDERED: CIPR250T27 PO (12:01)
[2020-05-23 12:42] VITALS: BP 158/81
== END 2020-05-23 14:25 | DRG 871 ==
LOC: ED 07:39 → EDIP 10:24 → 4WST 13:08
PROVIDERS: ADMIT Hospitalist; ATTEND Family Medicine
PROC: 0T9B70Z Drainage of Bladder with Drainage Device, Via Natural or Artificial Opening (ICD-10-PCS; principal; 2020-05-19)
DX: A41.9 Sepsis, unspecified organism (principal); J18.9 Pneumonia, unspecified organism; G93.41 Metabolic encephalopathy; N39.0 Urinary tract infection, site not specified; N17.9 Acute kidney failure, unspecified; E44.1 Mild protein-calorie malnutrition; R65.20 Severe sepsis without septic shock; F03.90 Unspecified dementia, unspecified severity, without behavioral disturbance, psychotic disturbance, mood disturbance, and anxiety; B96.5 Pseudomonas (aeruginosa) (mallei) (pseudomallei) as the cause of diseases classified elsewhere; I12.9 Hypertensive chronic kidney disease with stage 1 through stage 4 chronic kidney disease, or unspecified chronic kidney disease; N18.9 Chronic kidney disease, unspecified; S80.212A Abrasion, left knee, initial encounter; S80.211A Abrasion, right knee, initial encounter; N40.0 Benign prostatic hyperplasia without lower urinary tract symptoms; Z59.0 Homelessness; Z86.73 Personal history of transient ischemic attack (TIA), and cerebral infarction without residual deficits; Y93.89 Activity, other specified; Y92.89 Other specified places as the place of occurrence of the external cause; Y99.8 Other external cause status; Z68.20 Body mass index [BMI] 20.0-20.9, adult; X58.XXXA Exposure to other specified factors, initial encounter
CPT/HCPCS: 36415; 70450; 71045; 76770; 80048; 80053; 80069; 81001; 83605; 83735; 84100; 84145; 84443; 85025; 85610; 85651; 87040; 87077; 87086; 87106; 87186; 96361; 96365; 99285; G0378; J0696; J2543; J7030

== ENCOUNTER 2020-07-04 09:42 | Emergency (ER) | payer MEDICARE ==
[~2020-07-04] VITALS: Ht 180.3 cm; Wt 59.1 kg
[~2020-07-04 09:42] MED LIST changes: +ACET325T26 PO; +AMOX1TAB12 PO; +CIPR250T27 PO; +MELA5TAB14 PO; +Senna/Docusate PO
--- NOTE | 2020-07-04 10:20 | NUR ---
PT HAD OVER 750 URINE IN BLADDER. OLD CATH PULLED OUT. 16 F CATH PUT IN 700 ML URINE OUT
--- NOTE | 2020-07-04 10:31 | NUR ---
urine collected and ua sent at this time.
[2020-07-04 10:41] LABS: BASOPHILS % (AUTO) 1 % (0-1); EOSINOPHILS % (AUTO) 1 % (1-7); LYMPHOCYTES % (AUTO) 13 % (22-44); MEAN CORPUSCULAR HEMOGLOBIN 27.6 pg (27.5-34.5); MEAN CORPUSCULAR HGB CONC 31.5 g/dL (33.2-36.2); MONOCYTES % (AUTO) 6 % (2-9); NEUTROPHILS % (AUTO) 80 % (42-75); PLATELET COUNT 317 x10^3/uL (130-400); RED BLOOD COUNT 5.12 x10^6/uL (4.38-5.82); RED CELL DISTRIBUTION WIDTH 14.9 % (9.4-14.8)
[2020-07-04 10:47] LABS: MICROSCOPIC INDICATED
[2020-07-04 10:53] LABS: ALBUMIN 3.4 g/dL (3.4-5.0); ANION GAP 7 mmol/L (5-15); CALCIUM 8.8 mg/dL (8.5-10.1); CHLORIDE 112 mmol/L (98-107); CREATININE 1.56 mg/dL (0.7-1.3)
[2020-07-04 10:57] LABS: MD SCAN
--- NOTE | 2020-07-04 11:23 | NUR ---
pt sleeping in [facility]. resps even and unlabored. bp/spo2 monitors in place. call light within reach.
[2020-07-04 11:44] VITALS: BP 144/75
[2020-07-04] MEDS ORDERED: CEFTRIAXONE 1,000 MG ONE (11:55)
--- NOTE | 2020-07-04 11:59 | NUR ---
PT MEDICATED PER EMAR. PT TOLERATED WELL.
[2020-07-04] MEDS ORDERED: CEFTRIAXONE 1,000 MG IM ONE (12:00)
--- NOTE | 2020-07-04 12:26 | NUR ---
leg bag applied at this time.
== END 2020-07-04 12:47 | disposition home or self-care (01) ==
LOC: ED 10:16
DX: N30.00 Acute cystitis without hematuria (principal); I10 Essential (primary) hypertension; F17.200 Nicotine dependence, unspecified, uncomplicated; Z86.73 Personal history of transient ischemic attack (TIA), and cerebral infarction without residual deficits
CPT/HCPCS: 36415; 51702; 80048; 81001; 82040; 85025; 87077; 87086; 96372; 99284; J0696; 87186